=== PATIENT | female | born 1990 | race Caucasian/White ===

== ENCOUNTER 2016-07-31 23:14 | Observation (INO) | payer OTHER ==
[2016-08-01] MEDS ORDERED: ONDANSETRON 4 MG/2 ML VIAL IVP STA (00:15)
[2016-08-01] MEDS ORDERED: SODIUM CHLORIDE 0.9% 1,000 ML IV STA (00:15)
[2016-08-01] MEDS ORDERED: KETOROLAC 30 MG/ML 1 ML VIAL IVP STA (00:15)
--- NOTE | 2016-08-01 00:21 | ED ---
General Adult HPI - General Source: patient Mode of arrival: ambulatory Limitations: no limitations <Alberto Gomez - Last Filed: 08/01/16 02:02> <Sebastian Donald - Last Filed: 08/01/16 02:16> - General Chief complaint: Upper Respiratory Infection Stated complaint: general sickness Time Seen by Provider: 07/31/16 23:53 - History of Present Illness Initial comments: 25-year-old female patient presents with multiple complaints today. Patient states that for the last week whenever she is tried to eat food she becomes nauseated and vomits. Patient states that she has had a headache as well for the last 3 days. Patient was seen and treated at [facility] a week ago for upper respiratory symptoms, she was given azithromycin for this. Patient states that she is still coughing, but her nasal congestion and drainage has improved. Patient denies any abdominal pain, chest pain, shortness of breath, dizziness, weakness, back pain, fever, or chills. She states she has been urinating frequently but denies any dysuria, hematuria, or urgency. She denies any diarrhea. Patient states that she has not had a bowel movement since Friday, but states she has had very minimal oral intake due to the nausea. Denies any chance of . She also states that she has a yeast infection which she has been trying to clear up for the last month. She states that she has been using external cream, and vaginal suppositories as well as a Diflucan 1 without relief of symptoms. She also complains of increased thirst. (Alberto Gomez) - Related Data Home Medications Medication Instructions Recorded Confirmed Ibuprofen [Motrin] 400 mg PO Q6HR PRN 07/31/16 07/31/16 Allergies Allergy/AdvReac Type Severity Reaction Status Date / Time Penicillins Allergy Rash/Hives Verified 07/31/16 23:55 Review of Systems ROS Other: All systems not noted in ROS Statement are negative. <Alberto Gomez - Last Filed: 08/01/16 02:02> ROS Other: All systems not noted in ROS Statement are negative. <Sebastian Donald - Last Filed: 08/01/16 02:16> ROS Statement: Those systems with pertinent positive or pertinent negative responses have been documented in the HPI. Past Medical History Past Medical History: No Reported History History of Any Multi-Drug Resistant Organisms: None Reported Past Surgical History: No Surgical Hx Reported Past Psychological History: No Psychological Hx Reported Smoking Status: Current every day smoker Past Alcohol Use History: None Reported Past Drug Use History: Marijuana <Alberto Gomez - Last Filed: 08/01/16 02:02> General Exam Limitations: no limitations General appearance: alert, in no apparent distress Head exam: Present: atraumatic, normocephalic, normal inspection Eye exam: Present: normal appearance, PERRL, EOMI. Absent: scleral icterus, conjunctival injection, periorbital swelling ENT exam: Present: normal exam, mucous membranes moist Neck exam: Present: normal inspection. Absent: tenderness, meningismus, lymphadenopathy Respiratory exam: Present: normal lung sounds bilaterally, chest wall tenderness. Absent: respiratory distress, wheezes, rales, rhonchi, stridor Cardiovascular Exam: Present: regular rate, normal rhythm, normal heart sounds. Absent: systolic murmur, diastolic murmur, rubs, gallop, clicks GI/Abdominal exam: Present: soft, tenderness (Mid epigastric, mild), normal bowel sounds. Absent: distended, guarding, rebound, rigid Extremities exam: Present: normal inspection, full ROM, normal capillary refill , other (Full active range of motion to left shoulder, no joint tenderness, skin is intact, pink, dry, without lesion). Absent: tenderness, pedal edema, joint swelling, calf tenderness Back exam: Present: normal inspection. Absent: CVA tenderness (R), CVA tenderness (L) Neurological exam: Present: alert, oriented X3, CN II-XII intact Psychiatric exam: Present: normal affect, normal mood Skin exam: Present: warm, dry, intact, normal color. Absent: rash <Alberto Gomez - Last Filed: 08/01/16 02:02> Course <Alberto Gomez - Last Filed: 08/01/16 02:02> <Sebastian Donald - Last Filed: 08/01/16 02:16> Vital Signs 07/31/16 23:34 Temperature 97.2 F L Pulse Rate 97 Respiratory 16 Rate Blood Pressure 143/95 O2 Sat by Pulse 96 Oximetry - Reevaluation(s) Reevaluation #1: 08/01/16 02:15 Patient reevaluated by myself, Dr. Donald. Patient updated on results and plan. Case discussed with practitioner Beatrice mackay, who will admit for Dr. Eason, covering for hospital call for diabetes management. (Sebastian Donald) Medical Decision Making - Lab Data Result diagrams: 08/01/16 00:58 08/01/16 00:58 <Alberto Gomez - Last Filed: 08/01/16 02:02> - Lab Data Result diagrams: 08/01/16 00:58 08/01/16 00:58 <Sebastian Donald - Last Filed: 08/01/16 02:16> - Lab Data Lab Results 08/01/16 08/01/16 08/01/16 Range/Units 00:58 00:58 00:58 WBC 7.7 (3.8-10.6) k/uL RBC 5.84 H (3.80-5.40) m/uL Hgb 13.1 (11.4-16.0) gm/dL Hct 42.4 (34.0-46.0) % MCV 72.6 L (80.0-100.0) fL MCH 22.5 L (25.0-35.0) pg MCHC 31.0 (31.0-37.0) g/dL RDW 15.7 H (11.5-15.5) % Plt Count 290 (150-450) k/uL Neutrophils % 48 % Lymphocytes % 38 % Monocytes % 5 % Eosinophils % 3 % Basophils % 1 % Neutrophils # 3.7 (1.3-7.7) k/uL Lymphocytes # 2.9 (1.0-4.8) k/uL Monocytes # 0.4 (0-1.0) k/uL Eosinophils # 0.2 (0-0.7) k/uL Basophils # 0.1 (0-0.2) k/uL Hypochromasia Moderate Microcytosis Moderate Sodium 136 L (137-145) mmol/L Potassium 4.7 (3.5-5.1) mmol/L Chloride 97 L (98-107) mmol/L Carbon Dioxide 25 (22-30) mmol/L Anion Gap 14 mmol/L BUN 11 (7-17) mg/dL Creatinine 0.50 L (0.52-1.04) mg/dL Est GFR (MDRD) Af Amer >60 (>60 ml/min/1.73 sqM) Est GFR (MDRD) Non-Af >60 (>60 ml/min/1.73 sqM) Glucose 383 H (74-99) mg/dL POC Glucose (mg/dL) (75-99) mg/dL POC Glu Metaphysician ID Calcium 9.8 (8.4-10.2) mg/dL Total Bilirubin 0.5 (0.2-1.3) mg/dL AST 63 H (14-36) U/L ALT 78 H (9-52) U/L Alkaline Phosphatase 77 (38-126) U/L Total Protein 7.7 (6.3-8.2) g/dL Albumin 4.3 (3.5-5.0) g/dL Amylase 45 (30-110) U/L Lipase 113 (23-300) U/L Urine Color Urine Appearance (Clear) Urine pH (5.0-8.0) Ur Specific [place] (1.001-1.035) Urine Protein (Negative) Urine Glucose (UA) (Negative) Urine Ketones (Negative) Urine Blood (Negative) Urine Nitrite (Negative) Urine Bilirubin (Negative) Urine Urobilinogen (<2.0) mg/dL Ur Leukocyte Esterase (Negative) Urine RBC (0-5) /hpf Urine WBC (0-5) /hpf Ur Squamous Epith Cells (0-4) /hpf Urine Bacteria (None) /hpf Urine Mucus (None) /hpf Urine HCG, Qual (Not Detectd) Acetone, Qual Positive (Negative) 08/01/16 08/01/16 08/01/16 Range/Units 01:10 01:10 01:38 WBC (3.8-10.6) k/uL RBC (3.80-5.40) m/uL Hgb (11.4-16.0) gm/dL Hct (34.0-46.0) % MCV (80.0-100.0) fL MCH (25.0-35.0) pg MCHC (31.0-37.0) g/dL RDW (11.5-15.5) % Plt Count (150-450) k/uL Neutrophils % % Lymphocytes % % Monocytes % % Eosinophils % % Basophils % % Neutrophils # (1.3-7.7) k/uL Lymphocytes # (1.0-4.8) k/uL Monocytes # (0-1.0) k/uL Eosinophils # (0-0.7) k/uL Basophils # (0-0.2) k/uL Hypochromasia Microcytosis Sodium (137-145) mmol/L Potassium (3.5-5.1) mmol/L Chloride (98-107) mmol/L Carbon Dioxide (22-30) mmol/L Anion Gap mmol/L BUN (7-17) mg/dL Creatinine (0.52-1.04) mg/dL Est GFR (MDRD) Af Amer (>60 ml/min/1.73 sqM) Est GFR (MDRD) Non-Af (>60 ml/min/1.73 sqM) Glucose (74-99) mg/dL POC Glucose (mg/dL) 414 H (75-99) mg/dL POC Glu Metaphysician ID Latanya Stubbs Calcium (8.4-10.2) mg/dL Total Bilirubin (0.2-1.3) mg/dL AST (14-36) U/L ALT (9-52) U/L Alkaline Phosphatase (38-126) U/L Total Protein (6.3-8.2) g/dL Albumin (3.5-5.0) g/dL Amylase (30-110) U/L Lipase (23-300) U/L Urine Color Yellow Urine Appearance Clear (Clear) Urine pH 5.5 (5.0-8.0) Ur Specific [place] 1.040 H (1.001-1.035) Urine Protein Trace H (Negative) Urine Glucose (UA) 4+ H (Negative) Urine Ketones 2+ H (Negative) Urine Blood Small H (Negative) Urine Nitrite Negative (Negative) Urine Bilirubin Negative (Negative) Urine Urobilinogen <2.0 (<2.0) mg/dL Ur Leukocyte Esterase Negative (Negative) Urine RBC 8 H (0-5) /hpf Urine WBC 6 H (0-5) /hpf Ur Squamous Epith Cells 7 H (0-4) /hpf Urine Bacteria Rare H (None) /hpf Urine Mucus Rare H (None) /hpf Urine HCG, Qual Not Detected (Not Detectd) Acetone, Qual (Negative) Disposition Time of Disposition: 02:02 <Alberto Gomez - Last Filed: 08/01/16 02:02> <Sebastian Donald - Last Filed: 08/01/16 02:16> Clinical Impression: New onset type 2 diabetes mellitus, Candidiasis Disposition: ADMITTED IP TO THIS HOSP Condition: Good Referrals: None,Stated [Primary Care Provider] - 1-2 days
[2016-08-01 01:21] LABS: Appearance,Urine Clear (Clear); Bacteria,Urine Rare /hpf; Bilirubin,Urine Negative (Negative); Glucose,Urine (UA) 4+ (Negative); Leukocyte Esterase,Urine Negative (Negative); Mucus,Urine Rare /hpf; Nitrite,Urine Negative (Negative); PH, Urine 5.5 (5.0-8.0); Particle Count 8252; Protein,Urine Trace (Negative); RBC,Urine 8 /hpf (0-5); Squamous Epithelial Cell,Urine 7 /hpf (0-4); UA Billing (MACRO vs. MICRO) MICRO; Urobilinogen,Urine <2.0 mg/dL (<2.0); WBC,Urine 6 /hpf (0-5)
[2016-08-01 01:23] LABS: Ketones,Urine 2+ (Negative)
[2016-08-01 01:25] LABS: Aty Lym Flag Slight; Basophils # (A) 0.1 k/uL (0-0.2); Basophils % (A) 1 %; CH 22.5; CHCM 31.1; Eosinophils # (A) 0.2 k/uL (0-0.7); Eosinophils % (A) 3 %; HCT 42.4 % (34.0-46.0); HDW 2.96; HGB 13.1 gm/dL (11.4-16.0); Hypochromasia Moderate; Luc # (Auto) 0.45; Luc % (Auto) 6; Lymphocytes # (A) 2.9 k/uL (1.0-4.8); Lymphocytes % (A) 38 %; MCH 22.5 pg (25.0-35.0); MCV 72.6 fL (80.0-100.0); Mean Platelet Volume 7.5; Microcytosis Moderate; Monocytes # (A) 0.4 k/uL (0-1.0); Monocytes % (A) 5 %; Neutrophils # (A) 3.7 k/uL (1.3-7.7); Neutrophils % (A) 48 %; RBC 5.84 m/uL (3.80-5.40); RDW 15.7 % (11.5-15.5); WBC 7.7 k/uL (3.8-10.6); WBC (Perox) 7.24
[2016-08-01 01:35] LABS: ALT 78 U/L (9-52); AST 63 U/L (14-36); Alkaline Phosphatase 77 U/L (38-126); Amylase 45 U/L (30-110); Anion Gap 14 mmol/L; Blood Urea Nitrogen 11 mg/dL (7-17); Calcium 9.8 mg/dL (8.4-10.2); Carbon Dioxide 25 mmol/L (22-30); Chloride 97 mmol/L (98-107); Glucose 383 mg/dL (74-99); Non-African American GFR(MDRD) >60 (>60 ml/min/1.73 sqM); Potassium 4.7 mmol/L (3.5-5.1); Sodium 136 mmol/L (137-145); Total Bilirubin 0.5 mg/dL (0.2-1.3); Total Protein 7.7 g/dL (6.3-8.2)
[2016-08-01] MEDS ORDERED: SODIUM CHLORIDE 0.9% 1,000 ML IV ONE (01:35)
[2016-08-01 01:40] LABS: Glucose,Whole Blood 414 mg/dL (75-99)
[2016-08-01] MEDS ORDERED: ONDANSETRON 4 MG/2 ML VIAL IVP PRN (02:03)
[2016-08-01] MEDS ORDERED: NALOXONE 0.4 MG/ML 1 ML VIAL IV PRN (02:03)
[2016-08-01] MEDS ORDERED: INSULIN LISPRO (humaLOG) 300 UNIT/3 ML VIAL SQ ONE (02:35)
[2016-08-01 02:39] LABS: Glucose,Whole Blood 295 mg/dL (75-99)
[2016-08-01 03:21] LABS: Glucose,Whole Blood 295 mg/dL (75-99)
[2016-08-01 03:44] LABS: Manual Review Performed; Nucleated Red Blood Cells 0 /100 WBC (0-0); Total Cells Counted 100
[2016-08-01] MEDS: SODIUM CHLORIDE 0.9% 1,000 ML IV SCH ×3 (03:51→18:38)
[2016-08-01] MEDS: ACETAMINOPHEN TAB 325 MG TAB PO PRN ×3 (03:52→16:34)
[2016-08-01 07:42] LABS: Glucose,Whole Blood 331 mg/dL (75-99)
[2016-08-01] MEDS: INSULIN LISPRO (humaLOG) 300 UNIT/3 ML VIAL SQ SCH ×3 (08:22→18:35)
[2016-08-01 12:40] LABS: Glucose,Whole Blood 314 mg/dL (75-99)
[2016-08-01 17:31] LABS: Glucose,Whole Blood 255 mg/dL (75-99)
[2016-08-01] MEDS ORDERED: ALPRAZolam 0.25 MG TAB PO PRN (19:05)
[2016-08-01] MEDS ORDERED: INSULIN REGULAR BOLUS (FROM DRIP BAG) IV ONE (19:17)
[2016-08-01] MEDS ORDERED: INSULIN GLARGINE 100 UNIT/ML 10 ML VIAL SQ SCH (20:00)
[2016-08-01 20:19] LABS: Glucose,Whole Blood 265 mg/dL (75-99)
--- NOTE | 2016-08-01 20:55 | HP ---
DATE OF ADMISSION: 08/01/2016 CHIEF COMPLAINTS: Weakness, tiredness and flu-like symptoms. HISTORY OF PRESENT ILLNESS: This 25-year-old woman with a past medical history of no significant medical issues except history of nicotine dependence previously is not being followed by any primary physician in the outpatient setting. She had flu-like symptoms about 2 weeks ago. The patient apparently got better, but she was feeling tired and weak. The patient had some nausea and vomiting also. The patient had some upper respiratory symptoms and was treated with Zithromax at [facility] from elsewhere. Because of increased symptoms, the patient came to [facility] and was admitted for further evaluation and treatment. Initial labs showed glucose elevated up to 414. Acetone was positive and the patient was admitted for further evaluation and treatment. There is no history of any fever, rigor, or chills. No history of any headache, loss of consciousness, seizures. The sugar are still elevated. PAST MEDICAL HISTORY: 1. History of nicotine dependence. 2. History of THC. Medications prior to admission include Lantus 15 units subcutaneously at bedtime. ALLERGIES: PENICILLIN. FAMILY HISTORY: History of cancer and diabetes mellitus. SOCIAL HISTORY: Smoking. No history of alcohol intake. REVIEW OF SYSTEMS: ENT: As mentioned earlier. CARDIOVASCULAR SYSTEM: No angina, palpitations. RESPIRATORY SYSTEM: As mentioned earlier. GI: As mentioned earlier. : No dysuria. NERVOUS SYSTEM: No numbness or weakness. ALLERGY/IMMUNOLOGY: No asthma or hayfever. MUSCULOSKELETAL: As mentioned earlier. HEMATOLOGY/ONCOLOGY: No history of anemia. ENDOCRINE: As mentioned earlier. CONSTITUTIONAL: As mentioned earlier. DERMATOLOGY: Negative. RHEUMATOLOGY: Negative. PSYCHIATRY: As mentioned earlier. PHYSICAL EXAMINATION: Patient is alert and oriented x3. Pulse is 88, blood pressure 127/61, respiration 16, temperature 99.7, pulse ox 96% on room air. HEENT: Conjunctivae normal. Oral mucosa moist. NECK: No jugular venous distention. No carotid bruit. No lymph node enlargement. CARDIOVASCULAR SYSTEM: S1, S2 muffled. No S3. No S4. RESPIRATORY SYSTEM: Breath sounds diminished at the bases. A few scattered rhonchi. No crackles. Mild right breast cellulitis present. ABDOMEN: Soft, obese, nontender. No mass palpable. No guarding. No rigidity. LEGS: No edema. No swelling. NERVOUS SYSTEM: Higher functions as mentioned earlier. Moves all 4 limbs. No focal motor or sensory deficit. LYMPHATICS: No lymph node palpable in neck, axillae or groin. SKIN: No ulcer, rash, bleeding. Labs at this time show hemoglobin 13.1. Sodium 136. Glucose 383. CO2 is 25. Anion gap is 14. AST, ALT noted. ASSESSMENT: 1. Diabetes mellitus, type 1, possibly with early ketoacidosis. 2. Hyponatremia. Rt breast cellulitis. 3. Hemoglobin A1c of 13. 4. Increased AST, ALT; possible hepatitis of undetermined etiology. 5. Rule out urinary tract infection. 6. Super morbid obesity with a body mass index of 53.2. 7. Microcytosis. 8. History nicotine dependence. 9. History of tetrahydrocannabinol per chart. RECOMMENDATIONS AND DISCUSSION: In this 25-year-old woman who presented with multiple complex medical issues, we will monitor the patient closely, continue the current medications, continue with symptomatic treatment. I would recommend empiric antibiotics. Otherwise, DVT prophylaxis. I would recommend insulin drip at this time to control the blood sugars and continue to monitor. Lantus may be initiated once the sugars are controlled. Guarded prognosis. Further recommendations to follow. I would also recommend that the patient follow with a family physician in the outpatient setting. Discussed with the patient and family, who understand and agree. CASSIDY
[2016-08-01] MEDS: INSULIN REGULAR 100 UNIT in SODIUM CHLORIDE 0.9% 100 ML IV SCH (21:11)
[2016-08-01 21:21] LABS: ALT 65 U/L (9-52); AST 48 U/L (14-36); Alkaline Phosphatase 57 U/L (38-126); Anion Gap 8 mmol/L; Blood Urea Nitrogen 9 mg/dL (7-17); Calcium 8.6 mg/dL (8.4-10.2); Carbon Dioxide 26 mmol/L (22-30); Chloride 103 mmol/L (98-107); Glucose 265 mg/dL (74-99); Non-African American GFR(MDRD) >60 (>60 ml/min/1.73 sqM); Potassium 4.1 mmol/L (3.5-5.1); Sodium 137 mmol/L (137-145); Total Bilirubin 0.3 mg/dL (0.2-1.3); Total Protein 6.4 g/dL (6.3-8.2)
[2016-08-01 21:31] LABS: Glucose,Whole Blood 260 mg/dL (75-99)
[2016-08-01] MEDS: MELATONIN 3 MG TABLET PO SCH (23:29)
[2016-08-01] MEDS: HEPARIN SODIUM,PORCINE 5,000 UNIT/ML 1 ML VIAL SQ SCH (23:29)
[2016-08-01] MEDS: LEVOFLOXACIN 500MG-D5W PMX 500 MG in DEXTROSE/WATER 1 100ML.BAG IVPB SCH (23:30)
[2016-08-02 00:15] LABS: Glucose,Whole Blood 132 mg/dL (75-99)
[2016-08-02] MEDS: ACETAMINOPHEN TAB 325 MG TAB PO PRN ×2 (01:23→14:56)
[2016-08-02 01:33] LABS: Glucose,Whole Blood 105 mg/dL (75-99)
[2016-08-02 02:40] LABS: Glucose,Whole Blood 197 mg/dL (75-99)
[2016-08-02 04:13] LABS: Glucose,Whole Blood 274 mg/dL (75-99)
[2016-08-02 06:11] LABS: Glucose,Whole Blood 178 mg/dL (75-99)
[2016-08-02 06:50] LABS: Glucose,Whole Blood 130 mg/dL (75-99)
[2016-08-02 07:55] LABS: Glucose,Whole Blood 146 mg/dL (75-99)
[2016-08-02] MEDS: HEPARIN SODIUM,PORCINE 5,000 UNIT/ML 1 ML VIAL SQ SCH ×2 (08:13→20:30)
[2016-08-02] MEDS: PANTOPRAZOLE 40 MG TABLET PO SCH (08:13)
[2016-08-02] MEDS: HYDROcodone/APAP 5-325MG 1 EACH TAB PO PRN ×2 (08:18→17:33)
[2016-08-02 08:46] LABS: ALT 56 U/L (9-52); AST 45 U/L (14-36); Alkaline Phosphatase 56 U/L (38-126); Anion Gap 9 mmol/L; Blood Urea Nitrogen 8 mg/dL (7-17); Calcium 8.7 mg/dL (8.4-10.2); Carbon Dioxide 24 mmol/L (22-30); Chloride 105 mmol/L (98-107); Glucose 152 mg/dL (74-99); Non-African American GFR(MDRD) >60 (>60 ml/min/1.73 sqM); Potassium 4.3 mmol/L (3.5-5.1); Sodium 138 mmol/L (137-145); Total Bilirubin 0.4 mg/dL (0.2-1.3); Total Protein 6.6 g/dL (6.3-8.2)
[2016-08-02 08:56] LABS: Basophils % (A) 0 %; CH 21.7; CHCM 29.7; Eosinophils # (A) 0.2 k/uL (0-0.7); Eosinophils % (A) 3 %; HCT 38.8 % (34.0-46.0); HDW 2.81; HGB 11.6 gm/dL (11.4-16.0); Hypochromasia Marked; Luc # (Auto) 0.29; Luc % (Auto) 4; Lymphocytes # (A) 2.7 k/uL (1.0-4.8); Lymphocytes % (A) 41 %; MCV 73.5 fL (80.0-100.0); Mean Platelet Volume 6.3; Microcytosis Slight; Monocytes # (A) 0.4 k/uL (0-1.0); Monocytes % (A) 6 %; Neutrophils % (A) 46 %; RBC 5.29 m/uL (3.80-5.40); WBC 6.6 k/uL (3.8-10.6)
[2016-08-02 10:09] LABS: Glucose,Whole Blood 207 mg/dL (75-99)
[2016-08-02] MEDS: MULTIVITAMINS, THERA 1 EACH TAB PO SCH (10:57)
[2016-08-02 12:22] LABS: Glucose,Whole Blood 173 mg/dL (75-99)
[2016-08-02] MEDS: INSULIN REGULAR 100 UNIT in SODIUM CHLORIDE 0.9% 100 ML IV SCH (12:32)
[2016-08-02] MEDS ORDERED: INSULIN GLARGINE 100 UNIT/ML 10 ML VIAL SQ ONE (12:38)
[2016-08-02 16:11] LABS: Glucose,Whole Blood 197 mg/dL (75-99)
[2016-08-02 17:15] LABS: Glucose,Whole Blood 198 mg/dL (75-99)
--- NOTE | 2016-08-02 17:30 | PN ---
DATE OF SERVICE: 08/02/2016 This 25-year-old woman who was admitted with weakness and tiredness and flu-like symptoms also had features of acute diabetic ketoacidosis, early stage. The patient was given insulin drip yesterday. The patient is still on 7 units of regular insulin drip at this time. Patient has utilized close to 50 units of insulin in less than 24 hours, plus the patient also had mixed insulin yesterday as well. The patient is being closely monitored at this time. Patient also has a skin lesion in the breast area. The patient is on empiric antibiotics. Past medical history reviewed. REVIEW OF SYSTEMS: CARDIOVASCULAR SYSTEM: No angina, palpitations. RESPIRATORY SYSTEM: As mentioned earlier. GI: As mentioned earlier. : No dysuria. NERVOUS SYSTEM, ENDOCRINE: As mentioned earlier Current medications are reviewed and include: 1. Tylenol 650 q.6 p.r.n. 2. [place] 5 mg q.6 p.r.n. 3. Xanax 0.25 t.i.d. 4. Heparin 5000 units subcutaneously b.i.d. 5. Lantus 50 units subcutaneously at bedtime. 6. Humalog scale. 7. Humalog 4 units before meals t.i.d. 8. Levaquin q.24 hours. 9. Melatonin 3 mg at bedtime. 10. Multivitamins 1 p.o. daily. 11. Zofran. 12. Protonix. PHYSICAL EXAMINATION: Patient is alert and oriented x3. Pulse 87, blood pressure 120/64, respiration 22, temperature 97.6, pulse ox 93% on room air. HEENT: Conjunctivae normal. NECK: No jugular venous distention. CARDIOVASCULAR SYSTEM: S1, S2 muffled. RESPIRATORY SYSTEM: Breath sounds diminished at the bases. A few scattered rhonchi. No crackles. ABDOMEN: Soft, obese, nontender. LEGS: No edema. No swelling. NERVOUS SYSTEM: No focal deficit. Labs at this time show WBC 6.6, hemoglobin 11.6, MCV 73.5. AST, ALT noted. ASSESSMENT: 1. New-onset diabetes mellitus, type 1, possibly early ketoacidosis, present on admission, status post IV insulin drip. 2. Hyponatremia. 3. Right breast cellulitis. 4. Hemoglobin A1c of 13. 5. Increased AST, ALT; possible hepatitis of undetermined etiology. 6. Rule out urinary tract infection. 7. Super morbid obesity with a body mass index of 53.2. 8. Microcytosis. 9. History of nicotine dependence. 10. History of tetrahydrocannabinol per chart. 11. FULL CODE. RECOMMENDATIONS AND DISCUSSION: In this 25-year-old woman who presented with multiple complex medical issues, we will monitor the patient closely, continue the current medications, continue symptomatic treatment. The patient had early diabetic ketoacidosis present on admission. The patient is in new-onset diabetes mellitus. At this point I would recommend initiating Lantus 50 units subcutaneously at bedtime and give Lantus 25 units and stop the IV drip in 2 hours. Patient also needs to be on insulin regular 4 units with meals plus scale. Continue the antibiotics. Continue with rest of the medications. I would also recommend initiating metformin, also. We will follow the patient closely. Guarded prognosis because of multiple complex medical issues. Discussed with the patient See orders for further details. MTDD
[2016-08-02] MEDS: metFORMIN 500 MG TAB PO SCH (17:31)
[2016-08-02] MEDS: INSULIN LISPRO (humaLOG) 300 UNIT/3 ML VIAL SQ SCH ×3 (18:08→22:21)
[2016-08-02] MEDS: LEVOFLOXACIN 500MG-D5W PMX 500 MG in DEXTROSE/WATER 1 100ML.BAG IVPB SCH (20:29)
[2016-08-02] MEDS: MELATONIN 3 MG TABLET PO SCH (20:30)
[2016-08-02] MEDS ORDERED: INSULIN GLARGINE 100 UNIT/ML 10 ML VIAL SQ SCH (21:00)
[2016-08-02 21:14] LABS: Glucose,Whole Blood 206 mg/dL (75-99)
[2016-08-03 01:13] LABS: Glucose,Whole Blood 194 mg/dL (75-99)
[2016-08-03 07:37] LABS: Glucose,Whole Blood 247 mg/dL (75-99)
[2016-08-03 07:51] VITALS: BP 111/65; PULSE 72; RESP 20; TEMP 96.4
[2016-08-03] MEDS: INSULIN LISPRO (humaLOG) 300 UNIT/3 ML VIAL SQ SCH ×4 (08:20→13:31)
[2016-08-03] MEDS: PANTOPRAZOLE 40 MG TABLET PO SCH (08:20)
[2016-08-03] MEDS: metFORMIN 500 MG TAB PO SCH (08:20)
[2016-08-03] MEDS: HEPARIN SODIUM,PORCINE 5,000 UNIT/ML 1 ML VIAL SQ SCH (08:20)
[2016-08-03 08:37] LABS: Basophils % (A) 0 %; CH 21.7; CHCM 29.5; Eosinophils # (A) 0.3 k/uL (0-0.7); Eosinophils % (A) 3 %; HDW 2.85; HGB 11.4 gm/dL (11.4-16.0); Hypochromasia Marked; Luc % (Auto) 2; Lymphocytes # (A) 2.5 k/uL (1.0-4.8); Lymphocytes % (A) 31 %; MCH 21.6 pg (25.0-35.0); MCHC 29.2 g/dL (31.0-37.0); MCV 73.9 fL (80.0-100.0); Mean Platelet Volume 6.1; Microcytosis Slight; Monocytes # (A) 0.3 k/uL (0-1.0); Monocytes % (A) 4 %; Neutrophils # (A) 4.8 k/uL (1.3-7.7); Neutrophils % (A) 59 %; RBC 5.28 m/uL (3.80-5.40); RDW 15.4 % (11.5-15.5); WBC 8.2 k/uL (3.8-10.6); WBC (Perox) 8.78
[2016-08-03 08:51] LABS: ALT 49 U/L (9-52); AST 32 U/L (14-36); Alkaline Phosphatase 55 U/L (38-126); Anion Gap 9 mmol/L; Blood Urea Nitrogen 8 mg/dL (7-17); Calcium 9.1 mg/dL (8.4-10.2); Carbon Dioxide 25 mmol/L (22-30); Chloride 103 mmol/L (98-107); Glucose 261 mg/dL (74-99); Non-African American GFR(MDRD) >60 (>60 ml/min/1.73 sqM); Potassium 4.2 mmol/L (3.5-5.1); Sodium 137 mmol/L (137-145); Total Bilirubin 0.4 mg/dL (0.2-1.3); Total Protein 6.5 g/dL (6.3-8.2)
[2016-08-03 09:13] VITALS: BMI 56.2
[2016-08-03 11:54] LABS: Glucose,Whole Blood 221 mg/dL (75-99)
[2016-08-03] MEDS: MULTIVITAMINS, THERA 1 EACH TAB PO SCH (13:31)
[2016-08-03] MEDS ORDERED: INSULIN GLARGINE 100 UNIT/ML 10 ML VIAL SQ ONE (15:15)
[2016-08-03] MEDS ORDERED: LEVOFLOXACIN 500 MG TAB PO SCH (20:00)
--- NOTE | 2016-08-04 18:52 | DS ---
DATE OF ADMISSION: 08/01/2016 DATE OF DISCHARGE: 08/03/2016 FINAL DIAGNOSES: 1. New onset diabetes type 1, possibly early ketoacidosis, present on admission, status post IV insulin drip. 2. Hyponatremia. 3. Right breast cellulitis. 4. Hemoglobin A1c 13. 5. Increased AST, ALT, possible acute hepatitis of undetermined etiology. 6. History of urinary tract infection. 7. Super morbid obesity with body mass index of 53.2. 8. Microcytosis. 9. History nicotine dependence. 10. History of THC per chart. 11. FULL CODE. DISCHARGE DISPOSITION: The patient will be discharged in stable condition with guarded prognosis. Total time taken 35 minutes. HISTORY OF PRESENT ILLNESS: This 25-year-old woman with past medical history of multiple medical problems was admitted new onset diabetes mellitus and uncontrolled diabetes, early ketoacidosis. The patient was monitored. Insulin drip as given. Patient improved significantly. Sugars are more than 400 initially, but subsequently controlled around 200. On exam, vitals are stable. CARDIOVASCULAR SYSTEM: S1, S2. ABDOMEN: Soft. Nervous system: No focal deficits. Patient discharged in stable condition with guarded prognosis. Diet is 1800 calorie ADA. Follow up with Dr. Narayan in 2 to 3 days. Accu-Cheks a.c. and at bedtime. MEDICATIONS: 1. Tylenol 650 q.6 p.r.n. 2. Lantus 40 units subcu q.h.s. 3. Multivitamin 1 p.o. daily. 4. Glucophage 500 mg p.o. b.i.d. Further adjustment of the medications per Dr. Narayan. Once again the patient will be discharged in a stable condition with guarded prognosis. [facility]OSPITALDante
== END 2016-08-03 16:14 | disposition home or self-care (01) ==
LOC: EC 23:14 → 4MS4W 08-01 02:16
PROVIDERS: ADMIT Hospitalist; ATTEND Hospitalist
DX: E10.9 Type 1 diabetes mellitus without complications (principal); E87.1 Hypo-osmolality and hyponatremia; N61.0 Mastitis without abscess; R74.8 Abnormal levels of other serum enzymes; Z68.43 Body mass index [BMI] 50.0-59.9, adult; B37.9 Candidiasis, unspecified; F17.200 Nicotine dependence, unspecified, uncomplicated; L98.9 Disorder of the skin and subcutaneous tissue, unspecified; Z87.440 Personal history of urinary (tract) infections; R11.2 Nausea with vomiting, unspecified; R51 Headache; J06.9 Acute upper respiratory infection, unspecified; Z88.0 Allergy status to penicillin; R71.8 Other abnormality of red blood cells
CPT/HCPCS: 36415; 80053 ×3; 82150; 83036; 82009; 83690; 85025 ×3; 81001; 81025; 99284; 96375 ×2; 96361 ×2; G0378 ×3; J1644 ×3; J2405 ×2; J1956 ×2; J1885; 96365; 96366; 96372; 96376

== ENCOUNTER 2018-09-01 18:25 | Emergency (ER) | payer OTHER ==
[2018-09-01 18:33] VITALS: RESP 18; TEMP 99.3
[2018-09-01] MEDS ORDERED: SODIUM CHLORIDE 0.9% 1,000 ML IV STA (18:50)
--- NOTE | 2018-09-01 18:55 | ED ---
Abdominal Pain HPI - General Chief Complaint: Abdominal Pain Stated Complaint: Abd pain Time Seen by Provider: 09/01/18 18:33 Source: patient Mode of arrival: ambulatory Limitations: no limitations - History of Present Illness Initial Comments: 27-year-old female patient presents to the emergency department today for evaluation of upper abdominal pain. Patient states pain has been present for the last week. States it is a sharp stabbing pain it is constantly present however waxes and wanes. Patient states that the worst her pain reaches a 7-8 on the pain scale. Patient states she has been nauseated but has not vomited. She has been tolerating oral intake. Patient denies any constipation or diarrhea. Patient does have a past medical history significant for diabetes, states she has not taken her insulin any year it is unsure if her symptoms are related to her diabetes or not. She states that her last period was 2 months ago. States that she did previously take the diapers. Did stop it 2 months ago. Patient denies any hematuria, dysuria, urinary frequency, urinary urgency. Denies any back pain. Denies any fevers or chills with this. She is unsure if she is . Patient denies any recent rash, shortness breath, chest pain, numbness, tingling, dizziness, weakness, headache, visual changes, or any other complaints. - Related Data Previous Rx's Medication Instructions Recorded Cephalexin [Keflex] 500 mg PO Q6H #28 cap 09/01/18 metFORMIN HCL [Glucophage] 500 mg PO BID #60 tab 09/01/18 Allergies Allergy/AdvReac Type Severity Reaction Status Date / Time amoxicillin Allergy Rash/Hives Verified 09/01/18 19:14 Penicillins Allergy Rash/Hives Verified 09/01/18 19:14 Review of Systems ROS Statement: Those systems with pertinent positive or pertinent negative responses have been documented in the HPI. ROS Other: All systems not noted in ROS Statement are negative. Past Medical History Past Medical History: No Reported History, Diabetes Mellitus History of Any Multi-Drug Resistant Organisms: None Reported Past Surgical History: No Surgical Hx Reported Past Psychological History: No Psychological Hx Reported Smoking Status: Current every day smoker Past Alcohol Use History: Rare Past Drug Use History: Marijuana - Past Family History Father Family Medical History: Cancer, Diabetes Mellitus Mother History Unknown: Yes General Exam Limitations: no limitations General appearance: alert, in no apparent distress, other (This is a well- developed, well-nourished adult female patient in no acute distress. Vital signs upon presentation are temperature 99.2F, pulse 95, respirations 18, blood pressure 133/87, pulse ox 98% on room air.) Eye exam: Present: normal appearance, PERRL, EOMI. Absent: scleral icterus, conjunctival injection, periorbital swelling ENT exam: Present: normal exam, normal oropharynx, mucous membranes moist Respiratory exam: Present: normal lung sounds bilaterally. Absent: respiratory distress, wheezes, rales, rhonchi, stridor Cardiovascular Exam: Present: regular rate, normal rhythm, normal heart sounds. Absent: systolic murmur, diastolic murmur, rubs, gallop, clicks GI/Abdominal exam: Present: soft, tenderness (Midepigastric tenderness), normal bowel sounds. Absent: distended, guarding, rebound, rigid Neurological exam: Present: alert, oriented X3, CN II-XII intact Psychiatric exam: Present: normal affect, normal mood Skin exam: Present: warm, dry, intact, normal color. Absent: rash Course Vital Signs 09/01/18 09/01/18 18:26 20:35 Temperature 99.3 F Pulse Rate 95 80 Respiratory 18 18 Rate Blood Pressure 133/87 140/90 O2 Sat by Pulse 98 98 Oximetry Medical Decision Making - Medical Decision Making 27-year-old female patient presents to the emergency department today for evaluation of upper abdominal pain, concerned about her blood sugar, and requ esting test. Physical examination did reveal midepigastric tenderness. Labs reviewed and did reveal blood sugar 109. Normal anion gap. Urinalysis showed evidence of infection. Patient symptoms did improve the GI cocktail. She'll be discharged home at this time with instructions to keep a log of blood sugars to take to her primary care physician. We will refill metformin until she is able to follow-up. She will be given prescription for UTI. This has been sent for culture. She is instructed to follow-up through primary care physician for recheck as soon as possible. Return parameters were discussed in detail. She verbalizes understanding and agrees this plan. - Lab Data Result diagrams: 09/01/18 19:10 09/01/18 19:10 Lab Results 04/16/19 04/16/19 04/16/19 Range/Units 19:10 19:10 19:10 WBC 13.1 H (3.8-10.6) k/uL RBC 5.60 H (3.80-5.40) m/uL Hgb 12.7 (11.4-16.0) gm/dL Hct 41.1 (34.0-46.0) % MCV 73.4 L (80.0-100.0) fL MCH 22.6 L (25.0-35.0) pg MCHC 30.8 L (31.0-37.0) g/dL RDW 15.8 H (11.5-15.5) % Plt Count 397 (150-450) k/uL Neutrophils % 66 % Lymphocytes % 26 % Monocytes % 3 % Eosinophils % 3 % Basophils % 0 % Neutrophils # 8.6 H (1.3-7.7) k/uL Lymphocytes # 3.4 (1.0-4.8) k/uL Monocytes # 0.4 (0-1.0) k/uL Eosinophils # 0.5 (0-0.7) k/uL Basophils # 0.1 (0-0.2) k/uL Hypochromasia Moderate Microcytosis Slight Sodium 141 (137-145) mmol/L Potassium 4.1 (3.5-5.1) mmol/L Chloride 105 (98-107) mmol/L Carbon Dioxide 25 (22-30) mmol/L Anion Gap 11 mmol/L BUN 10 (7-17) mg/dL Creatinine 0.52 (0.52-1.04) mg/dL Est GFR (CKD-EPI)AfAm >90 (>60 ml/min/1.73 sqM) Est GFR (CKD-EPI)NonAf >90 (>60 ml/min/1.73 sqM) Glucose 109 H (74-99) mg/dL Calcium 10.1 (8.4-10.2) mg/dL Total Bilirubin 0.3 (0.2-1.3) mg/dL AST 15 (14-36) U/L ALT 18 (9-52) U/L Alkaline Phosphatase 56 (38-126) U/L Total Protein 8.2 (6.3-8.2) g/dL Albumin 4.9 (3.5-5.0) g/dL Amylase 48 (30-110) U/L Lipase 106 (23-300) U/L Urine Color Urine Appearance (Clear) Urine pH (5.0-8.0) Ur Specific [place] (1.001-1.035) Urine Protein (Negative) Urine Glucose (UA) (Negative) Urine Ketones (Negative) Urine Blood (Negative) Urine Nitrite (Negative) Urine Bilirubin (Negative) Urine Urobilinogen (<2.0) mg/dL Ur Leukocyte Esterase (Negative) Urine RBC (0-5) /hpf Urine WBC (0-5) /hpf Ur Squamous Epith Cells (0-4) /hpf Urine Bacteria (None) /hpf Urine Mucus (None) /hpf Urine HCG, Qual Not Detected (Not Detectd) 09/01/18 Range/Units 19:10 WBC (3.8-10.6) k/uL RBC (3.80-5.40) m/uL Hgb (11.4-16.0) gm/dL Hct (34.0-46.0) % MCV (80.0-100.0) fL MCH (25.0-35.0) pg MCHC (31.0-37.0) g/dL RDW (11.5-15.5) % Plt Count (150-450) k/uL Neutrophils % % Lymphocytes % % Monocytes % % Eosinophils % % Basophils % % Neutrophils # (1.3-7.7) k/uL Lymphocytes # (1.0-4.8) k/uL Monocytes # (0-1.0) k/uL Eosinophils # (0-0.7) k/uL Basophils # (0-0.2) k/uL Hypochromasia Microcytosis Sodium (137-145) mmol/L Potassium (3.5-5.1) mmol/L Chloride (98-107) mmol/L Carbon Dioxide (22-30) mmol/L Anion Gap mmol/L BUN (7-17) mg/dL Creatinine (0.52-1.04) mg/dL Est GFR (CKD-EPI)AfAm (>60 ml/min/1.73 sqM) Est GFR (CKD-EPI)NonAf (>60 ml/min/1.73 sqM) Glucose (74-99) mg/dL Calcium (8.4-10.2) mg/dL Total Bilirubin (0.2-1.3) mg/dL AST (14-36) U/L ALT (9-52) U/L Alkaline Phosphatase (38-126) U/L Total Protein (6.3-8.2) g/dL Albumin (3.5-5.0) g/dL Amylase (30-110) U/L Lipase (23-300) U/L Urine Color Yellow Urine Appearance Cloudy H (Clear) Urine pH 5.5 (5.0-8.0) Ur Specific [place] 1.034 (1.001-1.035) Urine Protein 1+ H (Negative) Urine Glucose (UA) Negative (Negative) Urine Ketones Negative (Negative) Urine Blood Negative (Negative) Urine Nitrite Negative (Negative) Urine Bilirubin Negative (Negative) Urine Urobilinogen <2.0 (<2.0) mg/dL Ur Leukocyte Esterase Large H (Negative) Urine RBC 12 H (0-5) /hpf Urine WBC 17 H (0-5) /hpf Ur Squamous Epith Cells 13 H (0-4) /hpf Urine Bacteria Moderate H (None) /hpf Urine Mucus Few H (None) /hpf Urine HCG, Qual (Not Detectd) - Radiology Data Radiology results: report reviewed, image reviewed 2 views of the abdomen are obtained. Report was reviewed in its entirety. Impression by Dr. Jamil Mederos shows negative examination. Disposition Clinical Impression: Urinary tract infection, Abdominal pain Disposition: HOME SELF-CARE Condition: Good Instructions (If sedation given, give patient instructions): Urinary Tract Infection in Women (ED), Abdominal Pain (ED) Additional Instructions: Increase fluids. Take medications as directed. Keep a log of your blood sugars to take your doctor's appointment. Complete antibiotic prescription and full. Return to the emergency department immediately for any new, worsening, or concerning symptoms. Prescriptions: metFORMIN HCL [Glucophage] 500 mg PO BID #60 tab Cephalexin [Keflex] 500 mg PO Q6H #28 cap Is patient prescribed a controlled substance at d/c from ED?: No Referrals: Moiz Narayan MD [Primary Care Provider] - 1-2 days Time of Disposition: 20:39
[2018-09-01 19:25] LABS: Basophils # (A) 0.1 k/uL (0-0.2); Basophils % (A) 0 %; Eosinophils # (A) 0.5 k/uL (0-0.7); Eosinophils % (A) 3 %; HCT 41.1 % (34.0-46.0); HGB 12.7 gm/dL (11.4-16.0); Hypochromasia Moderate; Lymphocytes # (A) 3.4 k/uL (1.0-4.8); Lymphocytes % (A) 26 %; MCH 22.6 pg (25.0-35.0); MCHC 30.8 g/dL (31.0-37.0); MCV 73.4 fL (80.0-100.0); Mean Platelet Volume 6.7; Microcytosis Slight; Monocytes # (A) 0.4 k/uL (0-1.0); Monocytes % (A) 3 %; Neutrophils # (A) 8.6 k/uL (1.3-7.7); Neutrophils % (A) 66 %; Platelet Count 397 k/uL (150-450); RDW 15.8 % (11.5-15.5); WBC 13.1 k/uL (3.8-10.6)
[2018-09-01 19:30] LABS: Appearance,Urine Cloudy (Clear); Bacteria,Urine Moderate /hpf; Bilirubin,Urine Negative (Negative); Blood,Urine Negative (Negative); Color,Urine Yellow; Glucose,Urine (UA) Negative (Negative); Ketones,Urine Negative (Negative); Leukocyte Esterase,Urine Large (Negative); Mucus,Urine Few /hpf; Nitrite,Urine Negative (Negative); PH, Urine 5.5 (5.0-8.0); Protein,Urine 1+ (Negative); RBC,Urine 12 /hpf (0-5); Specific Gravity,Urine 1.034 (1.001-1.035); Squamous Epithelial Cell,Urine 13 /hpf (0-4); Urobilinogen,Urine <2.0 mg/dL (<2.0); WBC,Urine 17 /hpf (0-5)
[2018-09-01 19:36] LABS: ALT 18 U/L (9-52); AST 15 U/L (14-36); Albumin 4.9 g/dL (3.5-5.0); Alkaline Phosphatase 56 U/L (38-126); Amylase 48 U/L (30-110); Anion Gap 11 mmol/L; Blood Urea Nitrogen 10 mg/dL (7-17); Calcium 10.1 mg/dL (8.4-10.2); Carbon Dioxide 25 mmol/L (22-30); Chloride 105 mmol/L (98-107); Glucose 109 mg/dL (74-99); Lipase 106 U/L (23-300); Potassium 4.1 mmol/L (3.5-5.1); Sodium 141 mmol/L (137-145); Total Bilirubin 0.3 mg/dL (0.2-1.3); Total Protein 8.2 g/dL (6.3-8.2)
[2018-09-01] MEDS ORDERED: MAG HYDROX/AL HYDROX/SIMETH 30 ML, HYOSCYAMINE ELIXIR 10 ML, CIMETIDINE HCL 300 MG, LID... PO STA ×4 (19:48)
--- NOTE | 2018-09-01 20:28 | XR ---
EXAMINATION TYPE: XR KUB, 2 views DATE OF EXAM: 09/01/2018 COMPARISON: NONE HISTORY: Abdominal pain TECHNIQUE: 2 upright views FINDINGS: Visualized lung bases and pleural spaces are negative. No pneumatosis or pneumoperitoneum. No bowel obstruction. Bowel gas pattern is unremarkable. No acute skeletal or soft tissue findings. IMPRESSION: Negative examination.
[2018-09-01] MEDS ORDERED: CEPHALEXIN 500MG STARTER PACK 4 CAP BTL PO STA (20:35)
[2018-09-01] MEDS ORDERED: IBUPROFEN 800 MG TAB PO STA (20:38)
[2018-09-01 20:52] VITALS: BP 140/90; PULSE 80
== END 2018-09-01 21:01 | disposition home or self-care (01) ==
LOC: EC 18:25
DX: N39.0 Urinary tract infection, site not specified (principal); E11.65 Type 2 diabetes mellitus with hyperglycemia; F17.200 Nicotine dependence, unspecified, uncomplicated; Z88.0 Allergy status to penicillin
CPT/HCPCS: 36415; 74018; 80053; 81001; 81025; 82150; 83690; 85025; 87086; 96360; 99284

== ENCOUNTER 2018-10-29 16:24 | Emergency (ER) | payer OTHER ==
[2018-10-29 16:39] VITALS: BP 107/63; PULSE 96; RESP 18; TEMP 98.5
[2018-10-29 16:45] LABS: Glucose,Whole Blood 108 mg/dL (75-99)
[2018-10-29 18:15] LABS: Basophils % (A) 0 %; Eosinophils # (A) 0.3 k/uL (0-0.7); Eosinophils % (A) 2 %; HCT 36.2 % (34.0-46.0); HGB 11.5 gm/dL (11.4-16.0); Lymphocytes # (A) 2.7 k/uL (1.0-4.8); Lymphocytes % (A) 22 %; MCH 22.8 pg (25.0-35.0); MCHC 31.7 g/dL (31.0-37.0); MCV 71.9 fL (80.0-100.0); Mean Platelet Volume 6.4; Microcytosis Moderate; Monocytes # (A) 0.5 k/uL (0-1.0); Monocytes % (A) 4 %; Neutrophils # (A) 8.7 k/uL (1.3-7.7); Neutrophils % (A) 71 %; Platelet Count 398 k/uL (150-450); RBC 5.04 m/uL (3.80-5.40); RDW 15.8 % (11.5-15.5); WBC 12.3 k/uL (3.8-10.6)
[2018-10-29 18:21] LABS: ALT 11 U/L (9-52); AST 14 U/L (14-36); African American GFR (CKD) >90 (>60 ml/min/1.73 sqM); Albumin 4.1 g/dL (3.5-5.0); Alkaline Phosphatase 48 U/L (38-126); Anion Gap 8 mmol/L; Blood Urea Nitrogen 12 mg/dL (7-17); Calcium 9.6 mg/dL (8.4-10.2); Carbon Dioxide 25 mmol/L (22-30); Chloride 106 mmol/L (98-107); Glucose 105 mg/dL (74-99); Potassium 4.1 mmol/L (3.5-5.1); Sodium 139 mmol/L (137-145); Total Bilirubin 0.4 mg/dL (0.2-1.3); Total Protein 7.1 g/dL (6.3-8.2)
[2018-10-29] MEDS ORDERED: diphenhydrAMINE 50 MG/ML 1 ML VIAL IVP STA (18:22)
[2018-10-29] MEDS ORDERED: ACETAMINOPHEN TAB 325 MG TAB PO STA (18:22)
[2018-10-29] MEDS ORDERED: SODIUM CHLORIDE 0.9% 500 ML 500 ML IV STA (18:22)
[2018-10-29 18:31] LABS: Appearance,Urine Clear (Clear); Bilirubin,Urine Negative (Negative); Blood,Urine Negative (Negative); Color,Urine Yellow; Glucose,Urine (UA) Negative (Negative); Ketones,Urine Negative (Negative); Leukocyte Esterase,Urine Negative (Negative); Nitrite,Urine Negative (Negative); PH, Urine 5.5 (5.0-8.0); Protein,Urine Negative (Negative); Specific Gravity,Urine 1.017 (1.001-1.035); Urobilinogen,Urine <2.0 mg/dL (<2.0)
--- NOTE | 2018-10-29 18:53 | ED ---
General Adult HPI - General Chief complaint: Recheck/Abnormal Lab/Rx Stated complaint: diabetes Time Seen by Provider: 10/29/18 17:43 Source: patient, RN notes reviewed, old records reviewed Mode of arrival: ambulatory Limitations: no limitations - History of Present Illness Initial comments: 28-year-old female patient has no history of type 2 diabetes parents to ED if multiple complaints. Patient primary complaint is waxing waning headaches. Patient doesn't history of migraine headaches. Patient reports that for approximately. She's had waxing and waning headaches in her right temporal lobe. Patient states that she does have a mild headache right now. Patient that she has not taken anything for these headaches. Denies taking any Tylenol or Motrin home. Patient states that she occasionally has some blurred vision, denies any vision complaints or now. Patient states that these headaches have an insidious onset, denies thunderclap headache. Patient denies worst headache of life. Patient denies any neck pain or loss of consciousness. Patient denies any recent trauma or falls. Patient states that she normally gets headaches and her glucose is elevated so she wishes to have that checked. Patient does report that she monitors her glucose at home and states that his general between 101 60. Patient has a third complaint of waxing and waning chest pain. Patient reports that she occasionally experiences chest pain in her right parasternal region. Patient states that this is a pressure and during last for a few minutes. Patient denies any radiation of pain. Patient denies any associated shortness of breath. Patient reports that she did experience some approximately 1.5 hours ago. Denies any current chest pain. Patient denies any association of pain with exertion. Denies any syncope or syncope while exercising. Denies any nausea vomiting diarrhea, denies any abdominal pain. Patient states that she is not . Systemic: Pt denies fatigue, fever/chills, rash. Pt denies weakness, night sweats, weight loss. Neuro: Pt denies headache, visual disturbances, syncope or pre-syncope. HEENT: Pt denies ocular discharge or irritation, otalgia, rhinorrhea, pharyngitis or notable lymphadenopathy. Cardiopulmonary: Pt denies SOB, heart palpitations, dyspnea on exertion. Abdominal/GI: Pt denies abdominal pain, n/v/d. : Pt denies dysuria, burning w/ urination, frequency/urgency. Denies new onset urinary or bowel incontinence. MSK: Pt denies myalgia, loss of strength or function in extremities. Neuro: Pt denies new onset weakness, paresthesias. - Related Data Previous Rx's Medication Instructions Recorded Cephalexin [Keflex] 500 mg PO Q6H #28 cap 09/01/18 metFORMIN HCL [Glucophage] 500 mg PO BID #60 tab 09/01/18 Allergies Allergy/AdvReac Type Severity Reaction Status Date / Time amoxicillin Allergy Rash/Hives Verified 10/29/18 16:39 Penicillins Allergy Rash/Hives Verified 10/29/18 16:39 Review of Systems ROS Statement: Those systems with pertinent positive or pertinent negative responses have been documented in the HPI. ROS Other: All systems not noted in ROS Statement are negative. Past Medical History Past Medical History: Diabetes Mellitus History of Any Multi-Drug Resistant Organisms: None Reported Past Surgical History: No Surgical Hx Reported Past Psychological History: No Psychological Hx Reported Smoking Status: Current every day smoker Past Alcohol Use History: Occasional Past Drug Use History: Marijuana - Past Family History Father Family Medical History: Cancer, Diabetes Mellitus Mother History Unknown: Yes General Exam - General Exam Comments Initial Comments: Constitutional: NAD, AOX3, Pt has pleasant affect. HEENT: NC/AT, trachea midline, neck supple, no lymphadenopathy. Posterior pharynx non erythematous, without exudates. External ears appear normal, without discharge. Mucous membranes moist. Eyes PERRLA, EOM intact. There is no scleral icterus. No pallor noted. Cardiopulmonary: RRR, no murmurs, rubs or gallops, no JVD noted. Lungs CTAB in anterior and posterior hernandez. No peripheral edema. Abdominal exam: Abdomen soft and non-distended. Abdomen non-tender to palpation in all 4 quadrants. Bowel sounds active in LLQ. No hepatosplenomegaly. No ecchymosis Neuro: CN II-XII intact. No nuchal rigidity. No raccon eyes, no ramirez sign, no hemotympanum. No cervical spinal tenderness. MSK: No posterior calf tenderness bilaterally, homans sign negative bilaterally. Posterior tibialis and radial pulse +2 bilaterally. Sensation intact in upper and lower extremities. Full active ROM in upper and lower extremities, 5/5 stregnth. Limitations: no limitations Course Vital Signs 10/29/18 16:36 Temperature 98.5 F Pulse Rate 96 Respiratory 18 Rate Blood Pressure 107/63 O2 Sat by Pulse 97 Oximetry Medical Decision Making - Medical Decision Making 28-year-old female patient has no history of type 2 diabetes parents to ED if multiple complaints. Patient primary complaint is waxing waning headaches. Patient doesn't history of migraine headaches. Patient reports that for approximately. She's had waxing and waning headaches in her right temporal lobe. Patient states that she does have a mild headache right now. Patient that she has not taken anything for these headaches. Denies taking any Tylenol or Motrin home. Patient states that she occasionally has some blurred vision, denies any vision complaints or now. Patient states that these headaches have an insidious onset, denies thunderclap headache. Patient denies worst headache of life. Patient denies any neck pain or loss of consciousness. Patient denies any recent trauma or falls. Patient states that she normally gets headaches and her glucose is elevated so she wishes to have that checked. Patient does report that she monitors her glucose at home and states that his general between 100-160. Patient has a third complaint of waxing and waning chest pain. Patient reports that she occasionally experiences chest pain in her right parasternal region. Patient states that this is a pressure and during last for a few minutes. Patient denies any radiation of pain. Patient denies any a ssociated shortness of breath. Patient reports that she did experience some approximately 1.5 hours ago. Denies any current chest pain. Patient denies any association of pain with exertion. Denies any syncope or syncope while exercising. Denies any nausea vomiting diarrhea, denies any abdominal pain. Patient states that she is not . Patient vital signs stable, afebrile. Physical exam didn't display acute pathology. Neurologic exam within normal limits. Shared decision-making, patient does not want CT of brain. Laboratory investigations revealed mild leukocytosis of 12.3. CMP noncompressive. Glucose 108. Troponin negative. UA negative. HCG negative. EKG not concerning for acute ischemia. Chest x-ray revealed no acute process. Patient left before receiving discharge. Case discussed with Dr. Mendieta. - Lab Data Result diagrams: 10/29/18 18:00 10/29/18 18:00 Lab Results 06/13/19 06/13/19 06/13/19 Range/Units 11:03 11:03 16:41 WBC (3.8-10.6) k/uL RBC (3.80-5.40) m/uL Hgb (11.4-16.0) gm/dL Hct (34.0-46.0) % MCV (80.0-100.0) fL MCH (25.0-35.0) pg MCHC (31.0-37.0) g/dL RDW (11.5-15.5) % Plt Count (150-450) k/uL Neutrophils % % Lymphocytes % % Monocytes % % Eosinophils % % Basophils % % Neutrophils # (1.3-7.7) k/uL Lymphocytes # (1.0-4.8) k/uL Monocytes # (0-1.0) k/uL Eosinophils # (0-0.7) k/uL Basophils # (0-0.2) k/uL Microcytosis Sodium (137-145) mmol/L Potassium (3.5-5.1) mmol/L Chloride (98-107) mmol/L Carbon Dioxide (22-30) mmol/L Anion Gap mmol/L BUN (7-17) mg/dL Creatinine (0.52-1.04) mg/dL Est GFR (CKD-EPI)AfAm (>60 ml/min/1.73 sqM) Est GFR (CKD-EPI)NonAf (>60 ml/min/1.73 sqM) Glucose (74-99) mg/dL POC Glucose (mg/dL) 108 H (75-99) mg/dL POC Glu Appeals Writer ID Amy Luis Calcium (8.4-10.2) mg/dL Total Bilirubin (0.2-1.3) mg/dL AST (14-36) U/L ALT (9-52) U/L Alkaline Phosphatase (38-126) U/L Troponin I (0.000-0.034) ng/mL Total Protein (6.3-8.2) g/dL Albumin (3.5-5.0) g/dL Urine Color Yellow Urine Appearance Clear (Clear) Urine pH 5.5 (5.0-8.0) Ur Specific [place] 1.017 (1.001-1.035) Urine Protein Negative (Negative) Urine Glucose (UA) Negative (Negative) Urine Ketones Negative (Negative) Urine Blood Negative (Negative) Urine Nitrite Negative (Negative) Urine Bilirubin Negative (Negative) Urine Urobilinogen <2.0 (<2.0) mg/dL Ur Leukocyte Esterase Negative (Negative) Urine HCG, Qual Not Detected (Not Detectd) Acetone, Qual (Negative) 10/29/18 10/29/18 10/29/18 Range/Units 18:00 18:00 18:00 WBC 12.3 H (3.8-10.6) k/uL RBC 5.04 (3.80-5.40) m/uL Hgb 11.5 (11.4-16.0) gm/dL Hct 36.2 (34.0-46.0) % MCV 71.9 L (80.0-100.0) fL MCH 22.8 L (25.0-35.0) pg MCHC 31.7 (31.0-37.0) g/dL RDW 15.8 H (11.5-15.5) % Plt Count 398 (150-450) k/uL Neutrophils % 71 % Lymphocytes % 22 % Monocytes % 4 % Eosinophils % 2 % Basophils % 0 % Neutrophils # 8.7 H (1.3-7.7) k/uL Lymphocytes # 2.7 (1.0-4.8) k/uL Monocytes # 0.5 (0-1.0) k/uL Eosinophils # 0.3 (0-0.7) k/uL Basophils # 0.0 (0-0.2) k/uL Microcytosis Moderate Sodium 139 (137-145) mmol/L Potassium 4.1 (3.5-5.1) mmol/L Chloride 106 (98-107) mmol/L Carbon Dioxide 25 (22-30) mmol/L Anion Gap 8 mmol/L BUN 12 (7-17) mg/dL Creatinine 0.60 (0.52-1.04) mg/dL Est GFR (CKD-EPI)AfAm >90 (>60 ml/min/1.73 sqM) Est GFR (CKD-EPI)NonAf >90 (>60 ml/min/1.73 sqM) Glucose 105 H (74-99) mg/dL POC Glucose (mg/dL) (75-99) mg/dL POC Glu Appeals Writer ID Calcium 9.6 (8.4-10.2) mg/dL Total Bilirubin 0.4 (0.2-1.3) mg/dL AST 14 (14-36) U/L ALT 11 (9-52) U/L Alkaline Phosphatase 48 (38-126) U/L Troponin I <0.012 (0.000-0.034) ng/mL Total Protein 7.1 (6.3-8.2) g/dL Albumin 4.1 (3.5-5.0) g/dL Urine Color Urine Appearance (Clear) Urine pH (5.0-8.0) Ur Specific [place] (1.001-1.035) Urine Protein (Negative) Urine Glucose (UA) (Negative) Urine Ketones (Negative) Urine Blood (Negative) Urine Nitrite (Negative) Urine Bilirubin (Negative) Urine Urobilinogen (<2.0) mg/dL Ur Leukocyte Esterase (Negative) Urine HCG, Qual (Not Detectd) Acetone, Qual Negative (Negative) - EKG Data -: EKG Interpreted by Me (and Dr Mendieta) EKG Comments: Ventricular rate 90, bands 134, QRS 74, QT/QTC 380/464. No sinus rhythm, no concern for acute ischemia. Disposition Clinical Impression: Acute headache, Atypical chest pain Disposition: HOME SELF-CARE Condition: Stable Instructions (If sedation given, give patient instructions): Acute Headache (ED) Additional Instructions: Patient to adhere to previously discussed treatment plan and will take medi cation(s) as directed. Patient to follow up with PCP in 1-2 days. Patient to return to ED if symptoms do not improve. Is patient prescribed a controlled substance at d/c from ED?: No Referrals: Moiz Narayan MD [Primary Care Provider] - 1-2 days
--- NOTE | 2018-10-29 19:14 | XR ---
EXAMINATION TYPE: XR chest 2V DATE OF EXAM: 10/29/2018 COMPARISON: NONE HISTORY: Dizziness TECHNIQUE: Frontal and lateral views of the chest are obtained. FINDINGS: Heart and mediastinum are normal. Lungs are clear. Diaphragm is normal. Bony thorax is int act. IMPRESSION: Normal chest
== END 2018-10-29 19:50 | disposition home or self-care (01) ==
LOC: EC 16:24
DX: R07.89 Other chest pain (principal); R51 Headache; H53.8 Other visual disturbances; F17.200 Nicotine dependence, unspecified, uncomplicated; Z32.02 Encounter for pregnancy test, result negative; Z88.0 Allergy status to penicillin
CPT/HCPCS: 36415; 93005; 80053; 82009; 84484; 85025; 81003; 81025; 71046; 99284; 96374; 96361; J1200

== ENCOUNTER → 2020-08-28 | Outpatient (CLI) | payer OTHER ==
[~2020-08-28] MED LIST: BAMLANIVIMAB (EUA) 700 MG, ETESEVIMAB (EUA) 1,400 MG in SODIUM CHLORIDE 0.9% 50 ML IVPB ONE; SODIUM CHLORIDE 0.9% 50 ML IVPB ONE
--- NOTE | 2020-08-28 11:43 | XR ---
EXAMINATION TYPE: XR chest 2V DATE OF EXAM: 08/28/2020 COMPARISON: NONE HISTORY: Shortness of breath. Covid-19 positive. TECHNIQUE: Frontal and lateral views of the chest are obtained. FINDINGS: There is new right basilar opacity confirmed on 2 views. Left lung is clear. The cardiac silhouette size remains within normal limits. The osseous structures are intact. IMPRESSION: New posterior right lower lobe acute infiltrate and/or atelectasis.
--- NOTE | 2020-08-28 12:17 | ED ---
SOB HPI - General Source: patient, EMS Mode of arrival: EMS Limitations: no limitations <Carolynn Marquez - Last Filed: 08/28/20 13:47> <Silva Wadsworth - Last Filed: 09/05/20 03:12> - General Chief Complaint: Shortness of Breath Stated Complaint: Covid+,SOB Time Seen by Provider: 08/28/20 10:46 - History of Present Illness Initial Comments: 29 year old female presenting to the emergency department today for chief complaint of shortness of breath, + Covid. Patient presenting for cc of shortness of breath. She states she tested positive for Covid a few days ago. Patient states she's had symptoms for about a week. Patient denies any chest pain like swelling hemoptysis nausea vomiting diarrhea or rashes. She states that she has felt increasing short of breath for the past 2 days. Patient is no additional complaints upon arrival she appears well nontoxic in no acute distress (Carolynn Marquez) - Related Data Previous Rx's Medication Instructions Recorded Cephalexin [Keflex] 500 mg PO Q6H #28 cap 09/01/18 metFORMIN HCL [Glucophage] 500 mg PO BID #60 tab 09/01/18 Allergies Allergy/AdvReac Type Severity Reaction Status Date / Time amoxicillin Allergy Rash/Hives Verified 10/29/18 16:39 Penicillins Allergy Rash/Hives Verified 10/29/18 16:39 Review of Systems ROS Other: All systems not noted in ROS Statement are negative. <Carolynn Marquez - Last Filed: 08/28/20 13:47> ROS Other: All systems not noted in ROS Statement are negative. <Silva Wadsworth - Last Filed: 09/05/20 03:12> ROS Statement: Those systems with pertinent positive or pertinent negative responses have been documented in the HPI. Past Medical History Past Medical History: Diabetes Mellitus History of Any Multi-Drug Resistant Organisms: None Reported Past Surgical History: No Surgical Hx Reported Past Psychological History: No Psychological Hx Reported Smoking Status: Current every day smoker Past Alcohol Use History: Occasional Past Drug Use History: Marijuana - Past Family History Father Family Medical History: Cancer, Diabetes Mellitus Mother History Unknown: Yes <Carolynn Marquez - Last Filed: 08/28/20 13:47> General Exam Limitations: no limitations <Carolynn Marquez - Last Filed: 08/28/20 13:47> - General Exam Comments Initial Comments: General: The patient is awake and alert, in no distress, and does not appear acutely ill. Eye: Pupils are equal, round and reactive to light, extra-ocular movements are intact. No nystagmus. There is normal conjunctiva bilaterally. No signs of icterus. Ears, nose, mouth and throat: There are moist mucous membranes and no oral lesions. Neck: The neck is supple, there is no tenderness or JVD. Cardiovascular: There is a regular rate and rhythm. No murmur, rub or gallop is appreciated. Respiratory: Lungs are clear to auscultation, respirations are non-labored, breath sounds are equal. No wheezes, stridor, rales, or rhonchi. Gastrointestinal: Soft, non-distended, non-tender abdomen without masses or organomegaly noted. There is no rebound or guarding present. Musculoskeletal: Normal ROM, no tenderness. Strength 5/5. Sensation intact. Pulses equal bilaterally 2+. Neurological: A&O x 3. CN II-XII intact, There are no obvious motor or sensory deficits. Coordination appears grossly intact. Speech is normal. Skin: Skin is warm and dry and no rashes or lesions are noted. No LE edema Psychiatric: Cooperative, appropriate mood & affect, normal judgment. (Carolynn Marquez) Course Vital Signs 08/28/20 08/28/20 08/28/20 10:45 10:47 13:30 Temperature 98.3 F 97.7 F Pulse Rate 90 90 Respiratory 18 16 18 Rate Blood Pressure 121/82 117/77 O2 Sat by Pulse 97 95 Oximetry 08/28/20 08/28/20 13:49 14:38 Temperature 97.7 F Pulse Rate 87 91 Respiratory 18 18 Rate Blood Pressure 118/72 91/58 O2 Sat by Pulse 93 L 94 L Oximetry Medical Decision Making <Carolynn Marquez - Last Filed: 08/28/20 13:47> <Silva Wadsworth - Last Filed: 09/05/20 03:12> - Medical Decision Making CXR small area of pneumonia most likely viral given patient covid 19 status. no distress. no hypoxia. BMI 50 pt opted to receive BAM as she is considered high risk. Patient is agreeable to discharge with home monitoring of oxygen return for any worsening symptoms. (Carolynn Marquez) I was available for consultation in the emergency department. The history and physical exam were done by the midlevel provider. I was consulted for this patients care. I reviewed the case with the midlevel provider and based on their presentation of the patient, I agree with the assessment, medical decision making and plan of care as documented. Chart was dictated using [employer] dictation software. Attempts were made to correct any dictation errors however some typographical errors may persist. Patient was seen during a [facility] due to the Covid-19 pandem ic. (Silva Wadsworth) - Lab Data Lab Results 08/28/20 Range/Units 12:11 Coronavirus (PCR) Detected A (Not Detectd) Disposition Is patient prescribed a controlled substance at d/c from ED?: No Time of Disposition: 12:17 <Carolynn Marquez - Last Filed: 08/28/20 13:47> <Silva Wadsworth - Last Filed: 09/05/20 03:12> Clinical Impression: COVID-19 Disposition: HOME SELF-CARE Condition: Good
[2020-08-28 13:30] VITALS: RESP 18; TEMP 97.7
[2020-08-28 14:39] VITALS: BP 91/58; PULSE 91
== END | disposition home or self-care (01) ==
LOC: EC 10:36 → PROCWHC3 10:36 → EDSTATUS 13:24
PROVIDERS: ATTEND Physician Assistant Medical
DX: U07.1 COVID-19 (principal); F17.210 Nicotine dependence, cigarettes, uncomplicated; E11.9 Type 2 diabetes mellitus without complications; F12.90 Cannabis use, unspecified, uncomplicated; Z79.84 Long term (current) use of oral hypoglycemic drugs
CPT/HCPCS: 99285 ×2; 96365; 87635; 71046; Q0245; M0245

== ENCOUNTER 2022-10-22 13:23 | Emergency (ER) | payer OTHER ==
[2022-10-22] MEDS ORDERED: LIDOCAINE 1% INJ 10MG/ML (30 ML VIAL-PF) SQ STA (13:45)
--- NOTE | 2022-10-22 13:55 | ED ---
General Adult HPI - General Chief complaint: Skin/Abscess/Foreign Body Stated complaint: abcess on buttock Time Seen by Provider: 10/22/22 13:38 Source: patient, RN notes reviewed, old records reviewed Mode of arrival: ambulatory Limitations: no limitations - History of Present Illness Initial comments: 31-year-old female presenting with abscess to her right buttock she noticed this over the past 2 days. She is a diabetic and his had previous abscess prior. She is also a current smoker. No fever. - Related Data Previous Rx's Medication Instructions Recorded Cephalexin [Keflex] 500 mg PO Q6H #28 cap 09/01/18 metFORMIN HCL [Glucophage] 500 mg PO BID #60 tab 09/01/18 Sulfamethox-Tmp 800-160Mg [Bactrim 1 tab PO Q12HR #28 tab 10/22/22 DS 800-160 mg] Allergies Allergy/AdvReac Type Severity Reaction Status Date / Time amoxicillin Allergy Rash/Hives Verified 10/22/22 13:30 Penicillins Allergy Rash/Hives Verified 10/22/22 13:30 Review of Systems ROS Statement: Those systems with pertinent positive or pertinent negative responses have been documented in the HPI. ROS Other: All systems not noted in ROS Statement are negative. Past Medical History Past Medical History: Diabetes Mellitus History of Any Multi-Drug Resistant Organisms: None Reported Past Surgical History: No Surgical Hx Reported Past Psychological History: No Psychological Hx Reported Smoking Status: Current every day smoker Past Alcohol Use History: Occasional Past Drug Use History: Marijuana - Past Family History Father Family Medical History: Cancer, Diabetes Mellitus Mother History Unknown: Yes General Exam Limitations: no limitations General appearance: alert, in no apparent distress Head exam: Present: atraumatic, normocephalic Eye exam: Present: normal appearance, PERRL ENT exam: Present: normal exam Neck exam: Present: normal inspection. Absent: meningismus Respiratory exam: Absent: respiratory distress Cardiovascular Exam: Present: regular rate, normal rhythm GI/Abdominal exam: Present: soft. Absent: distended, tenderness, guarding Rectal exam: Present: other (Right gluteal abscess, approximately 4 cm round with central fluctuance and surrounding erythema) Course Vital Signs 10/22/22 13:25 Temperature 98.0 F Pulse Rate 118 H Respiratory 20 Rate Blood Pressure 134/81 O2 Sat by Pulse 98 Oximetry Procedures - Incision & Drainage Consent Obtained: verbal consent Indication: Access Site: buttock Anesthetic Used: lidocaine 1% Amount (mLs): 5 I&D Cleaning Method: Alcohol Wipe Sterile Field Used?: No Scalpel Used: #11 Needle Aspiration Performed?: No Irrigation Performed?: Yes I&D Drainage Obtained: Pus Packing: Iodoform Culture Obtained?: No Patient Tolerated Procedure: well Medical Decision Making - Medical Decision Making Was pt. sent in by a medical professional or institution (AMADOR Valiente, ONCOLOGY CONSULTANT, urgent care, hospital, or long term...) When possible be specific @ -No Did you speak to anyone other than the patient for history (EMS, parent, family, police, friend...)? What history was obtained from this source @ -No Did you review nursing and triage notes (agree or disagree)? Why? @ -I reviewed and agree with nursing and triage notes Were old charts reviewed (outside hosp., previous admission, EMS record, old EKG, old radiological studies, urgent care reports/EKG's, long term records)? Report findings @ -No old charts were reviewed Differential Diagnosis (chest pain, altered mental status, abdominal pain women, abdominal pain men, vaginal bleeding, weakness, fever, dyspnea, syncope, headache, dizziness, GI bleed, back pain, seizure, CVA, palpatations, mental health, musculoskeletal)? @ -[Abscess, cellulitis EKG interpreted by me (3pts min.). @ -As above X-rays interpreted by me (1pt min.). @ -None done CT interpreted by me (1pt min.). @ -None done U/S interpreted by me (1pt. min.). @ -None done What testing was considered but not performed or refused? (CT, X-rays, U/S, labs)? Why? @ -None What meds were considered but not given or refused? Why? @ -None Did you discuss the management of the patient with other professionals (professionals i.e. AMAD[facility] Valiente, ONCOLOGY CONSULTANT, lab, RT, psych nurse, social media coordinator, acute care registered nurse, teacher, naval gunfire liaison officer, senior case manager)? Give summary @ -No Was smoking cessation discussed for >3mins.? @ -No Was critical care preformed (if so, how long)? @ -No Were there social determinants of health that impacted care today? How? (Homelessness, low income, unemployed, alcoholism, drug addiction, transportation, low edu. Level, literacy, decrease access to med. care, long-term, rehab)? @ -No Was there de-escalation of care discussed even if they declined (Discuss DNR or withdrawal of care, Hospice)? DNR status @ -No What co-morbidities impacted this encounter? (DM, HTN, Smoking, COPD, CAD, Cancer, CVA, ARF, Chemo, Hep., AIDS, mental health diagnosis, sleep apnea, morbid obesity)? @Diabetic, current smoker Was patient admitted / discharged? Hospital course, mention meds given and route, prescriptions, significant lab abnormalities, going to OR and other pertinent info. @31-year-old female with gluteal abscess, this is on the medial surface of the right buttock but is not perirectal. There is central fluctuance in the patient is agreeable with drainage. Incision and drainages performed a significant a mount of purulence. Patient placed on antibiotics and given strict return parameters. Undiagnosed new problem with uncertain prognosis? @ -No Drug Therapy requiring intensive monitoring for toxicity (Heparin, Nitro, Insulin, Cardizem)? @ -No Were any procedures done? @ -[Yes, incision and drainage Diagnosis/symptom? @Gluteal abscess Acute, or Chronic, or Acute on Chronic? @ -Acute Uncomplicated (without systemic symptoms) or Complicated (systemic symptoms)? @ -default Side effects of treatment? @ -No Exacerbation, Progression, or Severe Exacerbation? @ -No Poses a threat to life or bodily function? How? (Chest pain, [place], [place], pneumonia, PE, COPD, DKA, ARF, appy, cholecystitis, CVA, Diverticulitis, Homicidal, Suicidal, threat to staff... and all critical care pts) @ -No Disposition Clinical Impression: Abscess, gluteal, right Disposition: HOME SELF-CARE Condition: Good Instructions (If sedation given, give patient instructions): Abscess Incision and Drainage (ED), Abscess (ED) Prescriptions: Sulfamethox-Tmp 800-160Mg [Bactrim DS 800-160 mg] 1 tab PO Q12HR #28 tab Is patient prescribed a controlled substance at d/c from ED?: No Referrals: None,Stated [Primary Care Provider] - 1-2 days Time of Disposition: 13:54
[2022-10-22 14:32] VITALS: BP 138/68; PULSE 105; RESP 16
[2022-10-22 14:33] VITALS: TEMP 97.9
== END 2022-10-22 14:33 | disposition home or self-care (01) ==
LOC: EC 13:23
DX: L02.31 Cutaneous abscess of buttock (principal); E11.9 Type 2 diabetes mellitus without complications; F17.200 Nicotine dependence, unspecified, uncomplicated; F12.90 Cannabis use, unspecified, uncomplicated; Z88.0 Allergy status to penicillin
CPT/HCPCS: 99282; 10060; J2001

== ENCOUNTER 2022-12-04 00:47 | Emergency (ER) | payer OTHER ==
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
--- NOTE | 2022-12-04 01:46 | XR ---
EXAM: XR Left Knee, 3 Views CLINICAL HISTORY: ITS.REASON XR Reason: atraumatic knee pain TECHNIQUE: Three views of the left knee. COMPARISON: No relevant prior studies available. FINDINGS: Bones/joints: No acute osseous abnormalities. Soft tissues: Unremarkable. IMPRESSION: Unremarkable left knee.
[2022-12-04 02:06] VITALS: BP 133/85; PULSE 79; RESP 16; TEMP 98.2
== END 2022-12-04 02:06 | disposition home or self-care (01) ==
LOC: EC 00:47
DX: M25.562 Pain in left knee (principal); E11.9 Type 2 diabetes mellitus without complications; F17.200 Nicotine dependence, unspecified, uncomplicated; F12.90 Cannabis use, unspecified, uncomplicated; Z88.0 Allergy status to penicillin
CPT/HCPCS: 99283

== ENCOUNTER 2023-01-11 15:10 | Emergency (ER) | payer OTHER ==
[2023-01-11 16:52] LABS: Glucose,Whole Blood 370 mg/dL (70-110)
[2023-01-11 16:53] LABS: Appearance,Urine Clear (Clear); Bilirubin,Urine Negative (Negative); Blood,Urine Moderate (Negative); Color,Urine Light Yellow; Glucose,Urine (UA) 4+ (Negative); Ketones,Urine Negative (Negative); Leukocyte Esterase,Urine Negative (Negative); Mucus,Urine Rare /hpf; Nitrite,Urine Negative (Negative); Protein,Urine Negative (Negative); RBC,Urine 15 /hpf (0-5); Specific Gravity,Urine 1.034 (1.001-1.035); Squamous Epithelial Cell,Urine 3 /hpf (0-4); Urobilinogen,Urine <2.0 mg/dL (<2.0); WBC,Urine 1 /hpf (0-5)
--- NOTE | 2023-01-11 17:54 | ED ---
General Adult HPI - General Chief complaint: ENT Stated complaint: FLU LIKE SYMPTOMS Time Seen by Provider: 01/11/23 15:34 Source: patient, RN notes reviewed Mode of arrival: ambulatory Limitations: no limitations - History of Present Illness Initial comments: 32-year-old female presents to the emergency department for evaluation of congestion 2 days. She reports mild cough associated with this. Denies fever, chills. Patient is also concerned that she has an STD. 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 She states that she has never had active sore. She currently denies any cold sores or vaginal sores. She states that she has not seen a primary care provider in 2-3 years. Has a history of diabetes which she is no longer taking any medications for. - Related Data Previous Rx's Medication Instructions Recorded Cephalexin [Keflex] 500 mg PO Q6H #28 cap 09/01/18 metFORMIN HCL [Glucophage] 500 mg PO BID #60 tab 09/01/18 Sulfamethox-Tmp 800-160Mg [Bactrim 1 tab PO Q12HR #28 tab 10/22/22 DS 800-160 mg] Fluconazole [Diflucan] 150 mg PO ONCE #1 tab 01/11/23 metFORMIN HCL 500 mg PO BID #30 tablet 01/11/23 Allergies Allergy/AdvReac Type Severity Reaction Status Date / Time amoxicillin Allergy Rash/Hives Verified 01/11/23 15:32 Penicillins Allergy Rash/Hives Verified 01/11/23 15:32 Review of Systems ROS Statement: Those systems with pertinent positive or pertinent negative responses have been documented in the HPI. ROS Other: All systems not noted in ROS Statement are negative. Past Medical History Past Medical History: Diabetes Mellitus History of Any Multi-Drug Resistant Organisms: None Reported Past Surgical History: No Surgical Hx Reported Past Psychological History: No Psychological Hx Reported Smoking Status: Current every day smoker Past Alcohol Use History: Occasional Past Drug Use History: Marijuana - Past Family History Father Family Medical History: Cancer, Diabetes Mellitus Mother History Unknown: Yes General Exam Limitations: no limitations General appearance: alert, in no apparent distress Head exam: Present: atraumatic, normocephalic, normal inspection Eye exam: Present: normal appearance, PERRL, EOMI. Absent: scleral icterus, conjunctival injection, periorbital swelling ENT exam: Present: normal exam, mucous membranes moist Neck exam: Present: normal inspection. Absent: tenderness, meningismus, lymphadenopathy Respiratory exam: Present: normal lung sounds bilaterally. Absent: respiratory distress, wheezes, rales, rhonchi, stridor Cardiovascular Exam: Present: regular rate, normal rhythm, normal heart sounds. Absent: systolic murmur, diastolic murmur, rubs, gallop, clicks GI/Abdominal exam: Present: soft, normal bowel sounds. Absent: distended, tenderness, guarding, rebound, rigid Extremities exam: Present: normal inspection, full ROM, normal capillary refill. Absent: tenderness, pedal edema, joint swelling, calf tenderness Back exam: Present: normal inspection Neurological exam: Present: alert, oriented X3 Psychiatric exam: Present: normal affect, normal mood Skin exam: Present: warm, dry, intact, normal color. Absent: rash Course Vital Signs 01/11/23 01/11/23 15:27 18:04 Temperature 98.3 F 97.7 F Pulse Rate 102 H 105 H Respiratory 18 17 Rate Blood Pressure 122/74 133/87 O2 Sat by Pulse 95 100 Oximetry Medical Decision Making - Medical Decision Making Was pt. sent in by a medical professional or institution (, PA, SKI INSTRUCTOR, urgent care, hospital, or senior living...) When possible be specific @ -No Did you speak to anyone other than the patient for history (EMS, parent, family, police, friend...)? What history was obtained from this source @ -No Did you review nursing and triage notes (agree or disagree)? Why? @ -I reviewed and agree with nursing and triage notes Were old charts reviewed (outside hosp., previous admission, EMS record, old EKG, old radiological studies, urgent care reports/EKG's, senior living records)? Report findings @ -No old charts were reviewed Differential Diagnosis (chest pain, altered mental status, abdominal pain women, abdominal pain men, vaginal bleeding, weakness, fever, dyspnea, syncope, headache, dizziness, GI bleed, back pain, seizure, CVA, palpatations, mental health, musculoskeletal)? @ -not applicable EKG interpreted by me (3pts min.). @ -none X-rays interpreted by me (1pt min.). @ -None done CT interpreted by me (1pt min.). @ -None done U/S interpreted by me (1pt. min.). @ -None done What testing was considered but not performed or refused? (CT, X-rays, U/S, labs)? Why? @ -None What meds were considered but not given or refused? Why? @ -None Did you discuss the management of the patient with other professionals (professionals i.e. , PA, SKI INSTRUCTOR, lab, RT, psych nurse, hospital social worker, batting machine operator insulation, teacher, booking officer, oil field caser)? Give summary @ -No Was smoking cessation discussed for >3mins.? @ -No Was critical care preformed (if so, how long)? @ -No Were there social determinants of health that impacted care today? How? (Homelessness, low income, unemployed, alcoholism, drug addiction, transportation, low edu. Level, literacy, decrease access to med. care, senior care, rehab)? @ -No Was there de-escalation of care discussed even if they declined (Discuss DNR or withdrawal of care, Hospice)? DNR status @ -No What co-morbidities impacted this encounter? (DM, HTN, Smoking, COPD, CAD, Cancer, CVA, ARF, Chemo, Hep., AIDS, mental health diagnosis, sleep apnea, morbid obesity)? @ -DM Was patient admitted / discharged? Hospital course, mention meds given and route, prescriptions, significant lab abnormalities, going to OR and other pertinent info. @ -Discharge. Patient presented to emergency department for congestion 2 days. She is also concerned about STDs and would like gonorrhea and chlamydia testing. She states that she has a history of diabetes and is not taking any medications currently. She was on metformin and insulin in the past but has not seen a primary care provider in 2-3 years so has not been on these medications. She is requesting her blood glucose be checked today. Blood glucose is 370 which is likely typical for the patient as she has a known diabetic not on any medications. Patient will be restarted on metformin and advised to follow-up with a primary care provider. Patient given list of local primary physicians. Patient also given a prescription for dose of Diflucan as she is concerned that she has a yeast infection. Patient is agreeable with plan to follow up with a primary care provider for further diabetes management and STD concerns. Patient stable at time of discharge. Undiagnosed new problem with uncertain prognosis? @ -No Drug Therapy requiring intensive monitoring for toxicity (Heparin, Nitro, Insulin, Cardizem)? @ -No Were any procedures done? @ -No Diagnosis/symptom? @ -Viral URI Acute, or Chronic, or Acute on Chronic? @ -acute Uncomplicated (without systemic symptoms) or Complicated (systemic symptoms)? @ -uncomplicated Side effects of treatment? @ -none Exacerbation, Progression, or Severe Exacerbation] @ -no Poses a threat to life or bodily function? @ -no Diagnosis/symptom? @ -Type 2 diabetes mellitus Acute, or Chronic, or Acute on Chronic? @ -[Chronic Uncomplicated (without systemic symptoms) or Complicated (systemic symptoms)? @ -Uncomplicated Side effects of treatment? @ -No Exacerbation, Progression, or Severe Exacerbation? @ -No Poses a threat to life or bodily function? How? (Chest pain, [place], [place], pneumonia, PE, COPD, DKA, ARF, appy, cholecystitis, CVA, Diverticulitis, Homicidal, Suicidal, threat to staff... and all critical care pts) @ -No - Lab Data Lab Results 01/11/23 01/11/23 01/11/23 Range/Units 16:40 16:51 16:57 POC Glucose (mg/dL) 370 H (70-110) mg/dL POC Glu Garbage Person ID Jayden Clarke Urine Color Light Yellow Urine Appearance Clear (Clear) Urine pH 6.0 (5.0-8.0) Ur Specific [place] 1.034 (1.001-1.035) Urine Protein Negative (Negative) Urine Glucose (UA) 4+ H (Negative) Urine Ketones Negative (Negative) Urine Blood Moderate H (Negative) Urine Nitrite Negative (Negative) Urine Bilirubin Negative (Negative) Urine Urobilinogen <2.0 (<2.0) mg/dL Ur Leukocyte Esterase Negative (Negative) Urine RBC 15 H (0-5) /hpf Urine WBC 1 (0-5) /hpf Ur Squamous Epith Cells 3 (0-4) /hpf Urine Mucus Rare H (None) /hpf Influenza Type A (PCR) Not Detected (Not Detectd) Influenza Type B (PCR) Not Detected (Not Detectd) RSV (PCR) Not Detected (Not Detectd) SARS-CoV-2 (PCR) Not Detected (Not Detectd) Disposition Clinical Impression: Viral URI, Uncontrolled diabetes mellitus Disposition: HOME SELF-CARE Condition: Stable Instructions (If sedation given, give patient instructions): Upper Respiratory Infection (ED), Diabetes and Nutrition (ED) Additional Instructions: Please follow up with a primary care provider for further management of your diabetes. Return to the emergency department for new or worsening symptoms. Prescriptions: Fluconazole [Diflucan] 150 mg PO ONCE #1 tab metFORMIN HCL 500 mg PO BID #30 tablet Is patient prescribed a controlled substance at d/c from ED?: No Referrals: None,Stated [Primary Care Provider] - 1-2 days Forms: Area PCPs
[2023-01-11 18:05] VITALS: BP 133/87; PULSE 105; RESP 17; TEMP 97.7
[2023-01-13 14:27] LABS: N. gonorrhoeae,PCR Negative (Negative)
[2023-01-13 14:38] LABS: C. trachomatis,PCR Negative (Negative)
== END 2023-01-11 18:01 | disposition home or self-care (01) ==
LOC: EC 15:10
DX: J06.9 Acute upper respiratory infection, unspecified (principal); E11.9 Type 2 diabetes mellitus without complications; F12.90 Cannabis use, unspecified, uncomplicated; F17.200 Nicotine dependence, unspecified, uncomplicated; Z88.0 Allergy status to penicillin; Z20.822 Contact with and (suspected) exposure to COVID-19
CPT/HCPCS: 36415; 81001; 87491; 87591; 87636; 99283

== ENCOUNTER 2023-03-13 06:34 | Emergency (ER) | payer OTHER ==
[2023-03-13 06:42] VITALS: RESP 18; TEMP 97.7
[2023-03-13] MEDS ORDERED: SODIUM CHLORIDE 0.9% 1,000 ML IV ONE (06:52)
[2023-03-13] MEDS ORDERED: HYDROmorphone 0.5 MG/0.5 ML SYRINGE IVP STA ×2 (06:52→08:19)
[2023-03-13] MEDS ORDERED: KETOROLAC 15 MG/ML 1 ML VIAL IVP STA (06:52)
--- NOTE | 2023-03-13 06:54 | ED ---
General Adult HPI - General Source: patient, RN notes reviewed, old records reviewed Mode of arrival: ambulatory <Lalit Rangel - Last Filed: 03/13/23 06:52> <Sebastian Donald - Last Filed: 03/13/23 09:13> - General Chief complaint: Back Pain/Injury Stated complaint: Lower Back Pain Time Seen by Provider: 03/13/23 06:41 - History of Present Illness Initial comments: 32-year-old female with acute onset right flank pain. Pain began several hours prior to arrival. Began abruptly without injury. Patient cannot find a position of comfort. She denies vomiting. Denies fever. Denies any specific injury. Denies hematuria or dysuria. Patient has history of diabetes. No prior history of kidney stones. (Lalit Rangel) - Related Data Previous Rx's Medication Instructions Recorded Cephalexin [Keflex] 500 mg PO Q6H #28 cap 09/01/18 metFORMIN HCL [Glucophage] 500 mg PO BID #60 tab 09/01/18 Sulfamethox-Tmp 800-160Mg [Bactrim 1 tab PO Q12HR #28 tab 10/22/22 DS 800-160 mg] Fluconazole [Diflucan] 150 mg PO ONCE #1 tab 01/11/23 metFORMIN HCL 500 mg PO BID #30 tablet 01/11/23 Allergies Allergy/AdvReac Type Severity Reaction Status Date / Time amoxicillin Allergy Rash/Hives Verified 03/13/23 06:39 Penicillins Allergy Rash/Hives Verified 03/13/23 06:39 Review of Systems ROS Other: All systems not noted in ROS Statement are negative. <Lalit Rangel - Last Filed: 03/13/23 06:52> ROS Other: All systems not noted in ROS Statement are negative. <Sebastian Donald - Last Filed: 03/13/23 09:13> ROS Statement: Those systems with pertinent positive or pertinent negative responses have been documented in the HPI. Past Medical History Past Medical History: Diabetes Mellitus History of Any Multi-Drug Resistant Organisms: None Reported Past Surgical History: No Surgical Hx Reported Past Psychological History: No Psychological Hx Reported Smoking Status: Current every day smoker Past Alcohol Use History: Occasional Past Drug Use History: Marijuana - Past Family History Father Family Medical History: Cancer, Diabetes Mellitus Mother History Unknown: Yes <Lalit Rangel - Last Filed: 03/13/23 06:52> General Exam General appearance: alert, in no apparent distress Head exam: Present: atraumatic, normocephalic Eye exam: Present: normal appearance, PERRL ENT exam: Present: normal exam Neck exam: Present: normal inspection. Absent: tenderness Respiratory exam: Present: normal lung sounds bilaterally. Absent: respiratory distress Cardiovascular Exam: Present: regular rate, normal rhythm GI/Abdominal exam: Present: soft. Absent: distended, tenderness Back exam: Present: CVA tenderness (R) Neurological exam: Present: alert, oriented X3 Psychiatric exam: Present: normal affect, normal mood Skin exam: Present: warm, dry, intact <ClaireLalit Mario - Last Filed: 03/13/23 06:52> Course Vital Signs 03/13/23 03/13/23 03/13/23 06:36 07:18 08:40 Temperature 97.7 F Pulse Rate 99 96 95 Respiratory 18 18 18 Rate Blood Pressure 117/76 108/74 95/46 O2 Sat by Pulse 96 98 98 Oximetry Medical Decision Making <Lalit Rangel - Last Filed: 03/13/23 06:52> - Lab Data Result diagrams: 03/13/23 06:56 03/13/23 06:56 <Sebastian Donald - Last Filed: 03/13/23 09:13> - Medical Decision Making Was pt. sent in by a medical professional or institution ([facility] Valiente, LAUNDRY TECH, urgent care, hospital, or fci...) When possible be specific @ -[No] Did you speak to anyone other than the patient for history (EMS, parent, family, police, friend...)? What history was obtained from this source @ -[No] Did you review nursing and triage notes (agree or disagree)? Why? @ -[I reviewed and agree with nursing and triage notes] Were old charts reviewed (outside hosp., previous admission, EMS record, old EKG, old radiological studies, urgent care reports/EKG's, fci records)? Report findings @ -[No old charts were reviewed] Differential Diagnosis (chest pain, altered mental status, abdominal pain women, abdominal pain men, vaginal bleeding, weakness, fever, dyspnea, syncope, headache, dizziness, GI bleed, back pain, seizure, CVA, palpatations, mental health, musculoskeletal)? @ -Differential Abdominal Pain Women: Appendicitis, Cholecystitis, diverticulosis, ischemic bowel, pancreatitis, hepatitis, UTI, gastroenteritis, AAA, incarcerated hernia, bowel obstruction, constipation, inflammatory bowel, hepatitis, peptic ulcer disease, splenic infarction, perforated viscus, vulvitis, ovarian torsion, PID, kidney stone, placenta abruption, this is not meant to be an all-inclusive list EKG interpreted by me (3pts min.). @ -[As above] X-rays interpreted by me (1pt min.). @ -[None done] CT interpreted by me (1pt min.). @ CT the abdomen and pelvis without contrast has been ordered, results pending U/S interpreted by me (1pt. min.). @ -[None done] What testing was considered but not performed or refused? (CT, X-rays, U/S, labs)? Why? @ -[None] What meds were considered but not given or refused? Why? @ -[None] Did you discuss the management of the patient with other professionals (jt portillo i.eCeli Valiente, PA, LAUNDRY TECH, lab, RT, psych nurse, social insurance analyst, still cleaner, teacher, delinquency prevention officer, case management associate)? Give summary @ -[No] Was smoking cessation discussed for >3mins.? @ -[No] Was critical care preformed (if so, how long)? @ -[No] Were there social determinants of health that impacted care today? How? (Homelessness, low income, unemployed, alcoholism, drug addiction, transpo rtation, low edu. Level, literacy, decrease access to med. care, [facility], rehab)? @ -[No] Was there de-escalation of care discussed even if they declined (Discuss DNR or withdrawal of care, Hospice)? DNR status @ -[No] What co-morbidities impacted this encounter? (DM, HTN, Smoking, COPD, CAD, Cancer, CVA, ARF, Chemo, Hep., AIDS, mental health diagnosis, sleep apnea, morbid obesity)? @ -[Diabetes Was patient admitted / discharged? Hospital course, mention meds given and route, prescriptions, significant lab abnormalities, going to OR and other pertinent info. @ -Patient will receive laboratory testing, CT abdomen and pelvis. Patient care signed out [facility] shift [facility] report reviewed. Patient reevaluated and still had discomfort. Patient did have discomfort, mild to moderate right upper quadrant as well. Patient still had some back discomfort. Patient provided medications. Patient again reevaluated and feeling much better. Patient has comfortable and states discomfort is tolerable. Patient is comfortable with discharge home. Patient updated on results and need for follow-up. Diagnosis: Cholelithiasis Acute (Sebastian Donald) - Lab Data Lab Results 03/13/23 03/13/23 03/13/23 Range/Units 06:56 06:56 06:56 WBC 14.7 H (3.8-10.6) k/uL RBC 5.36 (3.80-5.40) m/uL Hgb 13.5 (11.4-16.0) gm/dL Hct 40.5 (34.0-46.0) % MCV 75.6 L (80.0-100.0) fL MCH 25.2 (25.0-35.0) pg MCHC 33.4 (31.0-37.0) g/dL RDW 14.4 (11.5-15.5) % Plt Count 376 (150-450) k/uL MPV 7.6 Neutrophils % 64 % Lymphocytes % 28 % Monocytes % 5 % Eosinophils % 2 % Basophils % 0 % Neutrophils # 9.4 H (1.3-7.7) k/uL Lymphocytes # 4.1 (1.0-4.8) k/uL Monocytes # 0.7 (0-1.0) k/uL Eosinophils # 0.3 (0-0.7) k/uL Basophils # 0.0 (0-0.2) k/uL Microcytosis Slight Sodium (137-145) mmol/L Potassium (3.5-5.1) mmol/L Chloride (98-107) mmol/L Carbon Dioxide (22-30) mmol/L Anion Gap mmol/L BUN (7-17) mg/dL Creatinine (0.52-1.04) mg/dL Est GFR (CKD-EPI)AfAm (>60 ml/min/1.73 sqM) Est GFR (CKD-EPI)NonAf (>60 ml/min/1.73 sqM) Glucose (74-99) mg/dL POC Glucose (mg/dL) (70-110) mg/dL POC Glu Wire Walker ID Calcium (8.4-10.2) mg/dL Total Bilirubin (0.2-1.3) mg/dL AST (14-36) U/L ALT (4-34) U/L Alkaline Phosphatase (38-126) U/L Total Protein (6.3-8.2) g/dL Albumin (3.5-5.0) g/dL Urine Color Yellow Urine Appearance Cloudy H (Clear) Urine pH 5.5 (5.0-8.0) Ur Specific [place] >1.030 (1.001-1.035) Urine Protein 1+ H (Negative) Urine Glucose (UA) 3+ (Negative) Urine Ketones Trace (Negative) Urine Blood Negative (Negative) Urine Nitrite Negative (Negative) Urine Bilirubin Negative (Negative) Urine Urobilinogen 2.0 (<2.0) mg/dL Ur Leukocyte Esterase Negative (Negative) Urine RBC 2 (0-5) /hpf Urine WBC 6 H (0-5) /hpf Ur Squamous Epith Cells 37 H (0-4) /hpf Hyaline Casts 2 (0-2) /lpf Urine Mucus Many H (None) /hpf Urine HCG, Qual Not Detected (Not Detectd) 03/13/23 03/13/23 Range/Units 06:56 08:01 WBC (3.8-10.6) k/uL RBC (3.80-5.40) m/uL Hgb (11.4-16.0) gm/dL Hct (34.0-46.0) % MCV (80.0-100.0) fL MCH (25.0-35.0) pg MCHC (31.0-37.0) g/dL RDW (11.5-15.5) % Plt Count (150-450) k/uL MPV Neutrophils % % Lymphocytes % % Monocytes % % Eosinophils % % Basophils % % Neutrophils # (1.3-7.7) k/uL Lymphocytes # (1.0-4.8) k/uL Monocytes # (0-1.0) k/uL Eosinophils # (0-0.7) k/uL Basophils # (0-0.2) k/uL Microcytosis Sodium 132 L (137-145) mmol/L Potassium 4.5 (3.5-5.1) mmol/L Chloride 100 (98-107) mmol/L Carbon Dioxide 23 (22-30) mmol/L Anion Gap 9 mmol/L BUN 10 (7-17) mg/dL Creatinine 0.34 L (0.52-1.04) mg/dL Est GFR (CKD-EPI)AfAm >90 (>60 ml/min/1.73 sqM) Est GFR (CKD-EPI)NonAf >90 (>60 ml/min/1.73 sqM) Glucose 317 H (74-99) mg/dL POC Glucose (mg/dL) 322 H (70-110) mg/dL POC Glu Wire Walker ID Maria Dolores Hook Calcium 9.5 (8.4-10.2) mg/dL Total Bilirubin 0.7 (0.2-1.3) mg/dL AST 25 (14-36) U/L ALT 14 (4-34) U/L Alkaline Phosphatase 53 (38-126) U/L Total Protein 7.5 (6.3-8.2) g/dL Albumin 4.1 (3.5-5.0) g/dL Urine Color Urine Appearance (Clear) Urine pH (5.0-8.0) Ur Specific [place] (1.001-1.035) Urine Protein (Negative) Urine Glucose (UA) (Negative) Urine Ketones (Negative) Urine Blood (Negative) Urine Nitrite (Negative) Urine Bilirubin (Negative) Urine Urobilinogen (<2.0) mg/dL Ur Leukocyte Esterase (Negative) Urine RBC (0-5) /hpf Urine WBC (0-5) /hpf Ur Squamous Epith Cells (0-4) /hpf Hyaline Casts (0-2) /lpf Urine Mucus (None) /hpf Urine HCG, Qual (Not Detectd) Disposition <Lalit Rangel - Last Filed: 03/13/23 06:52> Is patient prescribed a controlled substance at d/c from ED?: No Time of Disposition: 09:12 <Sebastian Donald - Last Filed: 03/13/23 09:13> Clinical Impression: Cholelithiasis Disposition: HOME SELF-CARE Condition: Stable Instructions (If sedation given, give patient instructions): Gallstones (ED) Additional Instructions: Please do follow-up with primary care physician in the next couple days for recheck. Have your blood sugar recheck. Please also follow-up with surgery in the next couple days for recheck. Return for fever, uncontrolled vomiting, uncontrolled pain, worsening or changing symptoms or other concerns. Referrals: Hawk Rodrigues MD [STAFF PHYSICIAN] - 1-2 days Binh Vazquez MD [Medical Doctor] - 1-2 days
[2023-03-13 07:10] LABS: Basophils % (A) 0 %; Eosinophils # (A) 0.3 k/uL (0-0.7); Eosinophils % (A) 2 %; HCT 40.5 % (34.0-46.0); HGB 13.5 gm/dL (11.4-16.0); Lymphocytes # (A) 4.1 k/uL (1.0-4.8); Lymphocytes % (A) 28 %; MCH 25.2 pg (25.0-35.0); MCHC 33.4 g/dL (31.0-37.0); MCV 75.6 fL (80.0-100.0); Mean Platelet Volume 7.6; Microcytosis Slight; Monocytes # (A) 0.7 k/uL (0-1.0); Monocytes % (A) 5 %; Neutrophils # (A) 9.4 k/uL (1.3-7.7); Neutrophils % (A) 64 %; Platelet Count 376 k/uL (150-450); RBC 5.36 m/uL (3.80-5.40); RDW 14.4 % (11.5-15.5); WBC 14.7 k/uL (3.8-10.6)
[2023-03-13 07:34] LABS: AST 25 U/L (14-36); African American GFR (CKD) >90 (>60 ml/min/1.73 sqM); Albumin 4.1 g/dL (3.5-5.0); Alkaline Phosphatase 53 U/L (38-126); Anion Gap 9 mmol/L; Blood Urea Nitrogen 10 mg/dL (7-17); Calcium 9.5 mg/dL (8.4-10.2); Carbon Dioxide 23 mmol/L (22-30); Chloride 100 mmol/L (98-107); Glucose 317 mg/dL (74-99); Non-African American GFR(CKD) >90 (>60 ml/min/1.73 sqM); Sodium 132 mmol/L (137-145); Total Bilirubin 0.7 mg/dL (0.2-1.3); Total Protein 7.5 g/dL (6.3-8.2)
[2023-03-13 07:35] LABS: Potassium 4.5 mmol/L (3.5-5.1)
--- NOTE | 2023-03-13 07:44 | CT ---
EXAMINATION TYPE: CT abdomen pelvis wo con CT DLP: 1182.4 mGycm, Automated exposure control for dose reduction was used. DATE OF EXAM: 03/13/2023 7:38 AM COMPARISON: None CLINICAL INDICATION:Female, 32 years old with history of rt flank pain; Rt flank pain TECHNIQUE: Standard CT of the abdomen and pelvis without IV or oral contrast. Lack of IV or oral co ntrast limits evaluation of solid and hollow organ viscera. Coronal and sagittal reformats were perfo rmed. FINDINGS: LOWER CHEST: Unremarkable ABDOMEN LIVER: Unremarkable GALLBLADDER AND BILE DUCTS: Cholelithiasis. No biliary ductal dilatation. PANCREAS: Unremarkable. SPLEEN: Unremarkable. ADRENAL GLANDS: Unremarkable. KIDNEYS AND URETERS: No evidence of hydronephrosis. 2 mm nonobstructive left renal calculus. PELVIS BLADDER: Under distended, limiting evaluation. REPRODUCTIVE: Unremarkable. ABDOMEN & PELVIS STOMACH AND BOWEL: Stomach and duodenum are unremarkable. No focal bowel wall thickening or surroundi ng inflammatory changes. The appendix is within normal limits. No evidence of bowel obstruction. PERITONEUM: No evidence of pneumoperitoneum or free fluid. VASCULATURE: No evidence of aortic aneurysm. Few pelvic phleboliths. MUSCULOSKELETAL: No acute osseous abnormalities. Straightening of the normal lumbar lordosis. LYMPH NODES: No gross evidence for lymphadenopathy. SOFT TISSUE/ABDOMINAL WALL: Unremarkable IMPRESSION: 1. No acute abdominal/pelvic process. No obstructive uropathy. 2. Nonobstructive 2 mm left renal calculus. 3. Cholelithiasis.
[2023-03-13 07:54] LABS: Hyaline Casts,Urine 2 /lpf (0-2); Mucus,Urine Many /hpf; RBC,Urine 2 /hpf (0-5); Squamous Epithelial Cell,Urine 37 /hpf (0-4); WBC,Urine 6 /hpf (0-5)
[2023-03-13 07:57] LABS: Appearance,Urine Cloudy (Clear); Color,Urine Yellow; PH, Urine 5.5 (5.0-8.0); Specific Gravity,Urine >1.030 (1.001-1.035)
[2023-03-13 07:58] LABS: Protein,Urine 1+ (Negative)
[2023-03-13 07:59] LABS: Bilirubin,Urine Negative (Negative); Blood,Urine Negative (Negative); Glucose,Urine (UA) 3+ (Negative); Ketones,Urine Trace (Negative); Leukocyte Esterase,Urine Negative (Negative); Nitrite,Urine Negative (Negative)
[2023-03-13 08:03] LABS: Glucose,Whole Blood 322 mg/dL (70-110)
[2023-03-13] MEDS ORDERED: INSULIN REGULAR 100 UNIT/ML VIAL (IM/SQ) SQ ONE ×2 (08:12→08:30)
[2023-03-13] MEDS ORDERED: FAMOTIDINE 20 MG/2 ML VIAL IV STA (08:19)
[2023-03-13] MEDS ORDERED: METOCLOPRAMIDE 5 MG/ML 2 ML VIAL IVP STA (08:20)
[2023-03-13 08:22] LABS: ALT 14 U/L (4-34)
[2023-03-13] MEDS ORDERED: ACET/COD 300 MG/30 MG STARTER PACK 6 TAB BTL PO STA (09:12)
[2023-03-13 09:28] VITALS: BP 99/62; PULSE 99
== END 2023-03-13 09:29 | disposition home or self-care (01) ==
LOC: EC 06:34
DX: K80.20 Calculus of gallbladder without cholecystitis without obstruction (principal); E11.9 Type 2 diabetes mellitus without complications; F17.200 Nicotine dependence, unspecified, uncomplicated; F12.90 Cannabis use, unspecified, uncomplicated; Z88.0 Allergy status to penicillin
CPT/HCPCS: 36415; 80053; 85025; 81001; 81025; 74176; 99284; 96374; 96375 ×3; 96376; 96361; J2765; J3490; J1885; J1170

== ENCOUNTER 2023-05-27 06:48 | Emergency (ER) | payer OTHER ==
[2023-05-27 07:15] VITALS: TEMP 99
[2023-05-27] MEDS ORDERED: KETOROLAC 15 MG/ML 1 ML VIAL IM STA (07:58)
--- NOTE | 2023-05-27 08:07 | ED ---
General Adult HPI - General Chief complaint: Upper Respiratory Infection Stated complaint: Pain all over Time Seen by Provider: 05/27/23 07:24 Source: patient Mode of arrival: ambulatory Limitations: no limitations - History of Present Illness Initial comments: Dictation was produced using [employer] dictation software. please excuse any grammatical, word or spelling errors. Chief Complaint: 32-year-old female with cough, constitutional symptoms and abdominal pain History of Present Illness: Patient is 32-year-old female presents emergency Department 2 days of cough, constitutional symptoms and crampy abdominal pain. 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 States that her cough is nonproductive. She states that she also has myalgias diffusely. Denies any diarrhea. No nausea or vomiting. The ROS documented in this emergency department record has been reviewed and confirmed by me. Those systems with pertinent positive or negative responses have been documented in the HPI. All other systems are other negative and/or noncontributory. - Related Data Previous Rx's Medication Instructions Recorded Cephalexin [Keflex] 500 mg PO Q6H #28 cap 09/01/18 metFORMIN HCL [Glucophage] 500 mg PO BID #60 tab 09/01/18 Sulfamethox-Tmp 800-160Mg [Bactrim 1 tab PO Q12HR #28 tab 10/22/22 DS 800-160 mg] Fluconazole [Diflucan] 150 mg PO ONCE #1 tab 01/11/23 metFORMIN HCL 500 mg PO BID #30 tablet 01/11/23 Molnupiravir [Lagevrio (Eua)] 800 mg PO BID 5 Days #40 cap 05/27/23 Allergies Allergy/AdvReac Type Severity Reaction Status Date / Time amoxicillin Allergy Rash/Hives Verified 05/27/23 06:50 Penicillins Allergy Rash/Hives Verified 05/27/23 06:50 Review of Systems ROS Statement: Those systems with pertinent positive or pertinent negative responses have been documented in the HPI. ROS Other: All systems not noted in ROS Statement are negative. Past Medical History Past Medical History: Diabetes Mellitus History of Any Multi-Drug Resistant Organisms: None Reported Past Surgical History: No Surgical Hx Reported Past Psychological History: No Psychological Hx Reported Smoking Status: Current every day smoker Past Alcohol Use History: Occasional Past Drug Use History: Marijuana - Past Family History Father Family Medical History: Cancer, Diabetes Mellitus Mother History Unknown: Yes General Exam - General Exam Comments Initial Comments: PHYSICAL EXAM: General Impression: Alert and oriented x3, not in acute distress HEENT: Normocephalic atraumatic, extra-ocular movements intact, pupils equal and reactive to light bilaterally, mucous membranes moist. Cardiovascular: Heart regular rate and rhythm Chest: Able to complete full sentences, no retractions, no tachypnea, lungs clear to auscultation bilaterally Abdomen: abdomen soft, non-tender, non-distended, no organomegaly Musculoskeletal: Pulses present and equal in all extremities, no peripheral edema Motor: no focal deficits noted Neurological: CN II-XII grossly intact, no focal motor or sensory deficits noted Skin: Intact with no visualized rashes Psych: Normal affect and mood Limitations: no limitations Course Vital Signs 05/27/23 06:50 Temperature 99 F Pulse Rate 110 H Respiratory 20 Rate Blood Pressure 133/76 O2 Sat by Pulse 95 Oximetry Medical Decision Making - Medical Decision Making Was pt. sent in by a medical professional or institution ( PA, RAILROAD YARD WORKER, urgent care, hospital, or [facility]...) When possible be specific @ -No Did you speak to anyone other than the patient for history (EMS, parent, family, police, friend...)? What history was obtained from this source @ -No Did you review nursing and triage notes (agree or disagree)? Why? @ -I reviewed and agree with nursing and triage notes Were old charts reviewed (outside hosp., previous admission, EMS record, old EKG, old radiological studies, urgent care reports/EKG's, [facility] records)? Report findings @ -No old charts were reviewed Differential Diagnosis (chest pain, altered mental status, abdominal pain women, abdominal pain men, vaginal bleeding, musculoskeletal, weakness, fever, dyspnea, syncope, headache, dizziness, GI bleed, back pain, seizure, CVA, palpatations, mental health)? @ -Differential fever EKG interpreted by me (3pts min.). @ -None done X-rays interpreted by me (1pt min.). @ -None done CT interpreted by me (1pt min.). @ -None done U/S interpreted by me (1pt. min.). @ -None done What testing was considered but not performed or refused? (CT, X-rays, U/S, labs)? Why? @ -None What meds were considered but not given or refused? Why? @ -None Did you discuss the management of the patient with other professionals (professionals i.e. , PA, RAILROAD YARD WORKER, lab, RT, psych nurse, delinquency prevention social worker, bulk tank car unloader, teacher, philanthropy officer, case operator)? Give summary @ -No Was smoking cessation discussed for >3mins.? @ -No Was critical care preformed (if so, how long)? @ -No Were there social determinants of health that impacted care today? How? (Homelessness, low income, unemployed, alcoholism, drug addiction, transportation, low edu. Level, literacy, decrease access to med. care, snf, rehab)? @ -No Was there de-escalation of care discussed even if they declined (Discuss DNR or withdrawal of care, Hospice)? DNR status @ -No What co-morbidities impacted this encounter? (DM, HTN, Smoking, COPD, CAD, Cancer, CVA, ARF, Chemo, Hep., AIDS, mental health diagnosis, sleep apnea, morbid obesity)? @ -None Was patient admitted / discharged? Hospital course, mention meds given and route, prescriptions, significant lab abnormalities, going to OR and other pertinent info. @ -32yo Female presents emergency department for URI symptoms with constitutional symptoms. Vital signs upon arrival shows mild tachycardia of 110, worse vital signs within acceptable limits. Patient is coronal virus positive. Urinalysis shows no indication of UTI. Patient's abdominal pain likely secondary to viral-related cause. Patient given prescription for coronal virus viral medications. Patient discharged stable medical condition. Undiagnosed new problem with uncertain prognosis? @ -No Drug Therapy requiring intensive monitoring for toxicity (Heparin, Nitro, Insulin, Cardizem)? @ -No Were any procedures done? @ -No Diagnosis/symptom? Acute, or Chronic, or Acute on Chronic? Uncomplicated (without systemic symptoms) or Complicated (systemic symptoms)? @ -coronavirus Side effects of treatment? @ -No Exacerbation, Progression, or Severe Exacerbation? @ -No Poses a threat to life or bodily function? How? (Chest pain, [place], [place], pneumonia, PE, COPD, DKA, ARF, appy, cholecystitis, CVA, Diverticulitis, Homicidal, Suicidal, threat to staff... and all critical care pts) @ -No - Lab Data Lab Results 05/27/23 05/27/23 05/27/23 Range/Units 06:53 08:29 08:29 Urine Color Light Yellow Urine Appearance Clear (Clear) Urine pH 6.0 (5.0-8.0) Ur Specific [place] 1.034 (1.001-1.035) Urine Protein Trace H (Negative) Urine Glucose (UA) 4+ H (Negative) Urine Ketones 1+ H (Negative) Urine Blood Moderate H (Negative) Urine Nitrite Negative (Negative) Urine Bilirubin Negative (Negative) Urine Urobilinogen <2.0 (<2.0) mg/dL Ur Leukocyte Esterase Negative (Negative) Urine RBC 17 H (0-5) /hpf Urine WBC <1 (0-5) /hpf Ur Squamous Epith Cells 4 (0-4) /hpf Urine Mucus Occasional H (None) /hpf Urine HCG, Qual Not Detected (Not Detectd) Influenza Type A (PCR) Not Detected (Not Detectd) Influenza Type B (PCR) Not Detected (Not Detectd) RSV (PCR) Not Detected (Not Detectd) SARS-CoV-2 (PCR) Detected A (Not Detectd) Disposition Clinical Impression: Coronavirus infection Disposition: HOME SELF-CARE Condition: Good Instructions (If sedation given, give patient instructions): Coronavirus Disease 2019 (COVID-19) Prescriptions: Molnupiravir [Lagevrio (Eua)] 800 mg PO BID 5 Days #40 cap Is patient prescribed a controlled substance at d/c from ED?: No Referrals: None,Stated [Primary Care Provider] - 1-2 days
[2023-05-27 10:22] LABS: Appearance,Urine Clear (Clear); Bilirubin,Urine Negative (Negative); Blood,Urine Moderate (Negative); Color,Urine Light Yellow; Glucose,Urine (UA) 4+ (Negative); Ketones,Urine 1+ (Negative); Leukocyte Esterase,Urine Negative (Negative); Mucus,Urine Occasional /hpf; Nitrite,Urine Negative (Negative); Protein,Urine Trace (Negative); RBC,Urine 17 /hpf (0-5); Specific Gravity,Urine 1.034 (1.001-1.035); Squamous Epithelial Cell,Urine 4 /hpf (0-4); Urobilinogen,Urine <2.0 mg/dL (<2.0); WBC,Urine <1 /hpf (0-5)
[2023-05-27 11:02] VITALS: BP 104/66; PULSE 86; RESP 18
== END 2023-05-27 10:57 | disposition home or self-care (01) ==
LOC: EC 06:48
DX: U07.1 COVID-19 (principal); E11.9 Type 2 diabetes mellitus without complications; F17.200 Nicotine dependence, unspecified, uncomplicated; F12.90 Cannabis use, unspecified, uncomplicated; Z88.0 Allergy status to penicillin
CPT/HCPCS: 81001; 81025; 87636; 99284; 96372; J1885

== ENCOUNTER 2024-04-28 22:04 | Emergency (ER) | payer OTHER ==
[2024-04-28 22:07] VITALS: TEMP 98.2
--- NOTE | 2024-04-28 22:29 | ED ---
ENT HPI - General Chief complaint: Dental/Oral Stated complaint: Dental Pain Time Seen by Provider: 04/28/24 22:28 Source: patient, RN notes reviewed Mode of arrival: ambulatory Limitations: no limitations - History of Present Illness Initial comments: 33-year-old female presenting to the ER for evaluation of dental pain.Patient states she has a broken tooth in her right lower molar. For the past 2 weeks she has been having pain in this region with radiation to his ear. Past 2 days pain has been uncontrollable with [id number] Tylenol. She denies any difficulty swallowing, breathing, tongue swelling, fevers, chills, nausea, vomiting. Patient is scheduled to follow-up with oral surgeon within the next week. No other complaints. - Related Data Previous Rx's Medication Instructions Recorded Cephalexin [Keflex] 500 mg PO Q6H #28 cap 09/01/18 metFORMIN HCL [Glucophage] 500 mg PO BID #60 tab 09/01/18 Sulfamethox-Tmp 800-160Mg [Bactrim 1 tab PO Q12HR #28 tab 10/22/22 DS 800-160 mg] Fluconazole [Diflucan] 150 mg PO ONCE #1 tab 01/11/23 metFORMIN HCL 500 mg PO BID #30 tablet 01/11/23 Molnupiravir [Lagevrio (Eua)] 800 mg PO BID 5 Days #40 cap 05/27/23 Clindamycin [Cleocin] 450 mg PO Q8H 7 Days #63 capsule 04/28/24 Allergies Allergy/AdvReac Type Severity Reaction Status Date / Time amoxicillin Allergy Rash/Hives Verified 04/28/24 22:07 Penicillins Allergy Rash/Hives Verified 04/28/24 22:07 Review of Systems ROS Statement: Those systems with pertinent positive or pertinent negative responses have been documented in the HPI. ROS Other: All systems not noted in ROS Statement are negative. Past Medical History Past Medical History: Diabetes Mellitus History of Any Multi-Drug Resistant Organisms: None Reported Past Surgical History: No Surgical Hx Reported Past Psychological History: No Psychological Hx Reported Smoking Status: Current every day smoker Past Alcohol Use History: Occasional Past Drug Use History: Marijuana - Past Family History Father Family Medical History: Cancer, Diabetes Mellitus Mother History Unknown: Yes General Exam Limitations: no limitations General appearance: alert, in no apparent distress ENT exam: Present: other (Poor dentition. No further exposed right lower molar. There is no drainable abscess. No tongue or oropharynx swelling.) Respiratory exam: Present: normal lung sounds bilaterally. Absent: respiratory distress, wheezes, rales, rhonchi, stridor Cardiovascular Exam: Present: regular rate, normal rhythm, normal heart sounds. Absent: systolic murmur, diastolic murmur, rubs, gallop, clicks Neurological exam: Present: alert, oriented X3, CN II-XII intact Skin exam: Present: warm, dry, intact, normal color. Absent: rash Course Vital Signs 04/28/24 04/28/24 22:05 23:38 Temperature 98.2 F 98.2 F Pulse Rate 120 H 101 H Respiratory 20 18 Rate Blood Pressure 119/85 121/81 O2 Sat by Pulse 100 100 Oximetry Procedures - Nerve Block Consent Obtained: verbal consent Local Anesthetic Used: Marcaine 0.25% Amount of anesthesia used: 5 Side: right Intraoral Nerve Block: inferior alveolar Procedure Successful: Yes Complications: none Patient Tolerated Procedure: well Medical Decision Making - Medical Decision Making Was pt. sent in by a medical professional or institution (, PA, RESTAURANT ASSOCIATE, urgent care, hospital, or [place] [facility]...) When possible be specific @ -No Did you speak to anyone other than the patient for history (EMS, parent, family, police, friend...)? What history was obtained from this source @ -No Did you review nursing and triage notes (agree or disagree)? Why? @ -I reviewed and agree with nursing and triage notes Were old charts reviewed (outside hosp., previous admission, EMS record, old EKG, old radiological studies, urgent care reports/EKG's, [place] [facility] records)? Report findings @ -No old charts were reviewed Differential Diagnosis (chest pain, altered mental status, abdominal pain women, abdominal pain men, vaginal bleeding, weakness, fever, dyspnea, syncope, headache, dizziness, GI bleed, back pain, seizure, CVA, palpatations, mental health, musculoskeletal)? @ -Dental abscess, fractured tooth, pulpitis, ... This list is not meant to be all-inclusive EKG interpreted by me (3pts min.). @ -[None done X-rays interpreted by me (1pt min.). @ -None done CT interpreted by me (1pt min.). @ -None done U/S interpreted by me (1pt. min.). @ -None done What testing was considered but not performed or refused? (CT, X-rays, U/S, labs)? Why? @ -None What meds were considered but not given or refused? Why? @ -None Did you discuss the management of the patient with other professionals (professionals i.e. DrCeli, PA, RESTAURANT ASSOCIATE, lab, RT, psych nurse, manager social work, window shade cutter, teacher, equal employment opportunity officer, child welfare caseworker)? Give summary @ -No Was smoking cessation discussed for >3mins.? @ -No Was critical care preformed (if so, how long)? @ -No Were there social determinants of health that impacted care today? How? (Homelessness, low income, unemployed, alcoholism, drug addiction, transportation, low edu. Level, literacy, decrease access to med. care, snf, rehab)? @ -No Was there de-escalation of care discussed even if they declined (Discuss DNR or withdrawal of care, Hospice)? DNR status @ -No What co-morbidities impacted this encounter? (DM, HTN, Smoking, COPD, CAD, Cancer, CVA, ARF, Chemo, Hep., AIDS, mental health diagnosis, sleep apnea, morbid obesity)? @ -None Was patient admitted / discharged? Hospital course, mention meds given and route, prescriptions, significant lab abnormalities, going to OR and other pe rtinent info. @ -Discharge. 33-year-old female presented to the ER for evaluation of dental pain. Patient no signs of acute distress. Vitals stable. Exam remarkable for nerve root exposed to the right lower molar. There is no drainable abscess identified on exam. Dental block performed for pain control. Patient will be started on clindamycin given penicillin allergy, first dose in the ER. Patient discharged with Tylenol 3 starter pack. I advised her to follow-up closely with dentist as scheduled. Patient reports she is scheduled to follow-up with oral surgeon in 1 week. Strict return parameters discussed. Patient discharged in stable condition with follow-up to PCP. Patient verbally expressed understanding and agreement with care plan. Case discussed with ED attending, Dr. Wesley. Undiagnosed new problem with uncertain prognosis? @ -No Drug Therapy requiring intensive monitoring for toxicity (Heparin, Nitro, Insulin, Cardizem)? @ -No Were any procedures done? @ -Yes, dental block Diagnosis/symptom? @ -Dental infection Acute, or Chronic, or Acute on Chronic? @ -Acute Uncomplicated (without systemic symptoms) or Complicated (systemic symptoms)? @ -Uncomplicated Side effects of treatment? @ -No Exacerbation, Progression, or Severe Exacerbation? @ -No Poses a threat to life or bodily function? How? (Chest pain, [place], [place], pneumonia, PE, COPD, DKA, ARF, appy, cholecystitis, CVA, Diverticulitis, Homicidal, Suicidal, threat to staff... and all critical care pts) @ -No Disposition Clinical Impression: Dental infection Disposition: HOME SELF-CARE Condition: Stable Instructions (If sedation given, give patient instructions): Toothache (ED) Additional Instructions: Continue taking [id number] ibuprofen and Tylenol for pain control. Follow-up with dentist as scheduled. Return to the ER for any new or worsening concerns. Complete full course of clindamycin. Prescriptions: Clindamycin [Cleocin] 450 mg PO Q8H 7 Days #63 capsule Is patient prescribed a controlled substance at d/c from ED?: No Referrals: Freedom Lao [Primary Care Provider] - 1-2 days Time of Disposition: 23:02
[2024-04-28] MEDS: LIDOCAINE 1% INJ 10MG/ML (20 ML MDV) SQ ONE (22:51)
[2024-04-28] MEDS: CLINDAMYCIN 150 MG CAP PO STA (22:51)
[2024-04-28] MEDS: BUPIVACAINE (PF) 0.25% 10 ML VIAL SQ STA (22:52)
[2024-04-28] MEDS: ACET/COD 300 MG/30 MG STARTER PACK 6 TAB BTL PO STA (23:24)
[2024-04-28 23:40] VITALS: BP 121/81; PULSE 101; RESP 18
== END 2024-04-28 23:49 | disposition home or self-care (01) ==
LOC: EC 22:04
DX: K04.7 Periapical abscess without sinus (principal); F17.200 Nicotine dependence, unspecified, uncomplicated; Z88.0 Allergy status to penicillin
CPT/HCPCS: 64400; 99283; J2003; J0665

== ENCOUNTER 2024-06-04 11:06 | Emergency (ER) | payer OTHER ==
[2024-06-04 11:25] VITALS: RESP 16
[2024-06-04 12:51] LABS: Basophils % (A) 0 %; Eosinophils # (A) 0.3 k/uL (0-0.7); Eosinophils % (A) 3 %; HCT 40.2 % (34.0-46.0); HGB 13.2 gm/dL (11.4-16.0); Lymphocytes # (A) 2.5 k/uL (1.0-4.8); Lymphocytes % (A) 24 %; MCH 24.6 pg (25.0-35.0); MCHC 32.9 g/dL (31.0-37.0); Mean Platelet Volume 7.2; Microcytosis Slight; Monocytes # (A) 0.4 k/uL (0-1.0); Monocytes % (A) 4 %; Neutrophils # (A) 7.1 k/uL (1.3-7.7); Neutrophils % (A) 68 %; Platelet Count 368 k/uL (150-450); RBC 5.36 m/uL (3.80-5.40); RDW 15.2 % (11.5-15.5); WBC 10.5 k/uL (3.8-10.6)
[2024-06-04 12:53] LABS: Appearance,Urine Clear (Clear); Bilirubin,Urine Negative (Negative); Blood,Urine Negative (Negative); Color,Urine Yellow; Glucose,Urine (UA) Negative (Negative); Ketones,Urine Negative (Negative); Leukocyte Esterase,Urine Negative (Negative); Nitrite,Urine Negative (Negative); Protein,Urine Trace (Negative); Specific Gravity,Urine 1.022 (1.001-1.035); Urobilinogen,Urine <2.0 mg/dL (<2.0)
[2024-06-04 13:06] LABS: ALT 11 U/L (4-34); AST 17 U/L (14-36); African American GFR (CKD) >90 (>60 ml/min/1.73 sqM); Albumin 4.2 g/dL (3.5-5.0); Alkaline Phosphatase 32 U/L (38-126); Anion Gap 9 mmol/L; Blood Urea Nitrogen 8 mg/dL (7-17); Calcium 9.5 mg/dL (8.4-10.2); Carbon Dioxide 25 mmol/L (22-30); Chloride 105 mmol/L (98-107); Glucose 95 mg/dL (74-99); Lipase 87 U/L (23-300); Non-African American GFR(CKD) >90 (>60 ml/min/1.73 sqM); Potassium 4.3 mmol/L (3.5-5.1); Sodium 139 mmol/L (137-145); Total Bilirubin 0.3 mg/dL (0.2-1.3); Total Protein 7.3 g/dL (6.3-8.2)
--- NOTE | 2024-06-04 14:05 | ED ---
General Adult HPI - General Chief complaint: Nausea/Vomiting/Diarrhea Stated complaint: Abd pain Time Seen by Provider: 06/04/24 12:07 Source: patient, RN notes reviewed Mode of arrival: ambulatory Limitations: no limitations - History of Present Illness Initial comments: 33-year-old female presents to the emergency department for evaluation of multiple complaints. Patient reports that she has intermittent abdominal discomfort. Patient reports that this is worse when she eats. She also admits to nausea without vomiting. Admits to normal bowel movements. Patient also requesting a test. She states that she gets lightheaded when she s tands up too quickly. Denies recent fever, chills. She states that she was recently evaluated at [facility] for the same thing. She had a CT done at that time and was told that she had a hernia. - Related Data Previous Rx's Medication Instructions Recorded Cephalexin [Keflex] 500 mg PO Q6H #28 cap 09/01/18 metFORMIN HCL [Glucophage] 500 mg PO BID #60 tab 09/01/18 Sulfamethox-Tmp 800-160Mg [Bactrim 1 tab PO Q12HR #28 tab 10/22/22 DS 800-160 mg] Fluconazole [Diflucan] 150 mg PO ONCE #1 tab 01/11/23 metFORMIN HCL 500 mg PO BID #30 tablet 01/11/23 Molnupiravir [Lagevrio (Eua)] 800 mg PO BID 5 Days #40 cap 05/27/23 Clindamycin [Cleocin] 450 mg PO Q8H 7 Days #63 capsule 04/28/24 Ondansetron Odt [Zofran Odt] 4 mg PO Q8HR PRN #12 tab 06/04/24 Allergies Allergy/AdvReac Type Severity Reaction Status Date / Time amoxicillin Allergy Rash/Hives Verified 06/04/24 11:25 Penicillins Allergy Rash/Hives Verified 06/04/24 11:25 Review of Systems ROS Statement: Those systems with pertinent positive or pertinent negative responses have been documented in the HPI. ROS Other: All systems not noted in ROS Statement are negative. Past Medical History Past Medical History: Diabetes Mellitus History of Any Multi-Drug Resistant Organisms: None Reported Past Surgical History: No Surgical Hx Reported Past Psychological History: No Psychological Hx Reported Smoking Status: Current every day smoker Past Alcohol Use History: Occasional Past Drug Use History: Marijuana - Past Family History Father Family Medical History: Cancer, Diabetes Mellitus Mother History Unknown: Yes General Exam Limitations: no limitations General appearance: alert, in no apparent distress Head exam: Present: atraumatic, normocephalic, normal inspection Eye exam: Present: normal appearance, PERRL, EOMI. Absent: scleral icterus, conjunctival injection, periorbital swelling ENT exam: Present: normal exam, mucous membranes moist Neck exam: Present: normal inspection. Absent: tenderness, meningismus, lymphadenopathy Respiratory exam: Present: normal lung sounds bilaterally. Absent: respiratory distress, wheezes, rales, rhonchi, stridor Cardiovascular Exam: Present: regular rate, normal rhythm, normal heart sounds. Absent: systolic murmur, diastolic murmur, rubs, gallop, clicks GI/Abdominal exam: Present: soft, normal bowel sounds. Absent: distended, tenderness, guarding, rebound, rigid Extremities exam: Present: normal inspection, full ROM, normal capillary refill. Absent: tenderness, pedal edema, joint swelling, calf tenderness Neurological exam: Present: alert, oriented X3 Psychiatric exam: Present: normal affect, normal mood Skin exam: Present: warm, dry, intact, normal color. Absent: rash Course Vital Signs 06/04/24 06/04/24 11:19 14:09 Temperature 98.2 F 98.7 F Pulse Rate 106 H 84 Respiratory 16 16 Rate Blood Pressure 115/87 120/80 O2 Sat by Pulse 98 100 Oximetry Medical Decision Making - Medical Decision Making Was pt. sent in by a medical professional or institution (, PA, PMO PROJECT MANAGER, urgent care, hospital, or skilled nursing...) When possible be specific @ -No Did you speak to anyone other than the patient for history (EMS, parent, family, police, friend...)? What history was obtained from this source @ -No Did you review nursing and triage notes (agree or disagree)? Why? @ -I reviewed and agree with nursing and triage notes Were old charts reviewed (outside hosp., previous admission, EMS record, old EKG, old radiological studies, urgent care reports/EKG's, skilled nursing records)? Report findings @ -Reviewed CT from [facility] which showed an umbilical hernia, gallstones Differential Diagnosis (chest pain, altered mental status, abdominal pain women, abdominal pain men, vaginal bleeding, weakness, fever, dyspnea, syncope, headache, dizziness, GI bleed, back pain, seizure, CVA, palpatations, mental health, musculoskeletal)? @ -Differential Abdominal Pain Women: Appendicitis, Cholecystitis, diverticulosis, ischemic bowel, pancreatitis, hepatitis, UTI, gastroenteritis, AAA, incarcerated hernia, bowel obstruction, constipation, inflammatory bowel, hepatitis, peptic ulcer disease, splenic infarction, perforated viscus, vulvitis, ovarian torsion, PID, kidney stone, placenta abruption, this is not meant to be an all-inclusive list EKG interpreted by me (3pts min.). @ -None X-rays interpreted by me (1pt min.). @ -None done CT interpreted by me (1pt min.). @ -None done U/S interpreted by me (1pt. min.). @ -None done What testing was considered but not performed or refused? (CT, X-rays, U/S, labs)? Why? @ -None What meds were considered but not given or refused? Why? @ -None Did you discuss the management of the patient with other professionals (professionals i.e. , PA, PMO PROJECT MANAGER, lab, RT, psych nurse, social work coordinator, filteration operator, t eacher, dog license officer supervisor, rn case mgr)? Give summary @ -No Was smoking cessation discussed for >3mins.? @ -No Was critical care preformed (if so, how long)? @ -No Were there social determinants of health that impacted care today? How? (Homelessness, low income, unemployed, alcoholism, drug addiction, transportation, low edu. Level, literacy, decrease access to med. care, [facility], rehab)? @ -No Was there de-escalation of care discussed even if they declined (Discuss DNR or withdrawal of care, Hospice)? DNR status @ -No What co-morbidities impacted this encounter? (DM, HTN, Smoking, COPD, CAD, Cancer, CVA, ARF, Chemo, Hep., AIDS, mental health diagnosis, sleep apnea, morbid obesity)? @ -None Was patient admitted / discharged? Hospital course, mention meds given and route, prescriptions, significant lab abnormalities, going to OR and other pertinent info. @ -Discharge. Patient presented emergency department for evaluation of abdominal pain. Laboratory studies obtained revealing no significant leukocytosis, hemoglobin stable,BUN, creatinine within normal limits, no significant transaminitis UA shows no evidence of infectious process negative urine hCG. I reviewed the CT report from [facility] that the patient had recently. I discussed the findings with the patient of her lab work and went over the findings of her CT scan that she had done at the outside facility. I discussed that she should follow-up with a general surgeon if she continues to have symptoms. She is understanding and agreeable with this plan. Patient stable at time of discharge. Case discussed with Dr. Mendieta Undiagnosed new problem with uncertain prognosis? @ -No Drug Therapy requiring intensive monitoring for toxicity (Heparin, Nitro, Insulin, Cardizem)? @ -No Were any procedures done? @ -No Diagnosis/symptom? @ -Abdominal pain Acute, or Chronic, or Acute on Chronic? @ -Acute Uncomplicated (without systemic symptoms) or Complicated (systemic symptoms)? @ -Uncomplicated Side effects of treatment? @ -No Exacerbation, Progression, or Severe Exacerbation? @ -No Poses a threat to life or bodily function? How? (Chest pain, [place], [place], pneumonia, PE, COPD, DKA, ARF, appy, cholecystitis, CVA, Diverticulitis, Homicidal, Suicidal, threat to staff... and all critical care pts) @ -No - Lab Data Result diagrams: 06/04/24 12:40 06/04/24 12:40 Lab Results 06/04/24 06/04/24 06/04/24 Range/Units 12:40 12:40 12:40 WBC 10.5 (3.8-10.6) k/uL RBC 5.36 (3.80-5.40) m/uL Hgb 13.2 (11.4-16.0) gm/dL Hct 40.2 (34.0-46.0) % MCV 75.0 L (80.0-100.0) fL MCH 24.6 L (25.0-35.0) pg MCHC 32.9 (31.0-37.0) g/dL RDW 15.2 (11.5-15.5) % Plt Count 368 (150-450) k/uL MPV 7.2 Neutrophils % 68 % Lymphocytes % 24 % Monocytes % 4 % Eosinophils % 3 % Basophils % 0 % Neutrophils # 7.1 (1.3-7.7) k/uL Lymphocytes # 2.5 (1.0-4.8) k/uL Monocytes # 0.4 (0-1.0) k/uL Eosinophils # 0.3 (0-0.7) k/uL Basophils # 0.0 (0-0.2) k/uL Microcytosis Slight Sodium (137-145) mmol/L Potassium (3.5-5.1) mmol/L Chloride (98-107) mmol/L Carbon Dioxide (22-30) mmol/L Anion Gap mmol/L BUN (7-17) mg/dL Creatinine (0.52-1.04) mg/dL Est GFR (CKD-EPI)AfAm (>60 ml/min/1.73 sqM) Est GFR (CKD-EPI)NonAf (>60 ml/min/1.73 sqM) Glucose (74-99) mg/dL Calcium (8.4-10.2) mg/dL Total Bilirubin (0.2-1.3) mg/dL AST (14-36) U/L ALT (4-34) U/L Alkaline Phosphatase (38-126) U/L Total Protein (6.3-8.2) g/dL Albumin (3.5-5.0) g/dL Lipase (23-300) U/L Urine Color Yellow Urine Appearance Clear (Clear) Urine pH 5.0 (5.0-8.0) Ur Specific [place] 1.022 (1.001-1.035) Urine Protein Trace H (Negative) Urine Glucose (UA) Negative (Negative) Urine Ketones Negative (Negative) Urine Blood Negative (Negative) Urine Nitrite Negative (Negative) Urine Bilirubin Negative (Negative) Urine Urobilinogen <2.0 (<2.0) mg/dL Ur Leukocyte Esterase Negative (Negative) Urine HCG, Qual Not Detected (Not Detectd) 06/04/24 Range/Units 12:40 WBC (3.8-10.6) k/uL RBC (3.80-5.40) m/uL Hgb (11.4-16.0) gm/dL Hct (34.0-46.0) % MCV (80.0-100.0) fL MCH (25.0-35.0) pg MCHC (31.0-37.0) g/dL RDW (11.5-15.5) % Plt Count (150-450) k/uL MPV Neutrophils % % Lymphocytes % % Monocytes % % Eosinophils % % Basophils % % Neutrophils # (1.3-7.7) k/uL Lymphocytes # (1.0-4.8) k/uL Monocytes # (0-1.0) k/uL Eosinophils # (0-0.7) k/uL Basophils # (0-0.2) k/uL Microcytosis Sodium 139 (137-145) mmol/L Potassium 4.3 (3.5-5.1) mmol/L Chloride 105 (98-107) mmol/L Carbon Dioxide 25 (22-30) mmol/L Anion Gap 9 mmol/L BUN 8 (7-17) mg/dL Creatinine 0.61 (0.52-1.04) mg/dL Est GFR (CKD-EPI)AfAm >90 (>60 ml/min/1.73 sqM) Est GFR (CKD-EPI)NonAf >90 (>60 ml/min/1.73 sqM) Glucose 95 (74-99) mg/dL Calcium 9.5 (8.4-10.2) mg/dL Total Bilirubin 0.3 (0.2-1.3) mg/dL AST 17 (14-36) U/L ALT 11 (4-34) U/L Alkaline Phosphatase 32 L (38-126) U/L Total Protein 7.3 (6.3-8.2) g/dL Albumin 4.2 (3.5-5.0) g/dL Lipase 87 (23-300) U/L Urine Color Urine Appearance (Clear) Urine pH (5.0-8.0) Ur Specific [place] (1.001-1.035) Urine Protein (Negative) Urine Glucose (UA) (Negative) Urine Ketones (Negative) Urine Blood (Negative) Urine Nitrite (Negative) Urine Bilirubin (Negative) Urine Urobilinogen (<2.0) mg/dL Ur Leukocyte Esterase (Negative) Urine HCG, Qual (Not Detectd) Disposition Clinical Impression: Abdominal pain Disposition: HOME SELF-CARE Condition: Stable Instructions (If sedation given, give patient instructions): Abdominal Pain (ED) Additional Instructions: Please follow up with your primary care provider. Return to the emergency department for new or worsening symptoms. Prescriptions: Ondansetron Odt [Zofran Odt] 4 mg PO Q8HR PRN #12 tab PRN Reason: Nausea Is patient prescribed a controlled substance at d/c from ED?: No Referrals: Freedom Lao [Primary Care Provider] - 1-2 days Darrin Oliveira DO [Medical Doctor] - 1-2 days
[2024-06-04 14:15] VITALS: BP 120/80; PULSE 84; TEMP 98.7
== END 2024-06-04 14:15 | disposition home or self-care (01) ==
LOC: EC 11:06
DX: R10.9 Unspecified abdominal pain (principal); F17.200 Nicotine dependence, unspecified, uncomplicated; Z88.0 Allergy status to penicillin
CPT/HCPCS: 36415; 80053; 81003; 81025; 83690; 85025; 99284